=== PATIENT | male | born 1970 | race Caucasian/White ===

== ENCOUNTER 2021-04-06 13:57 | Outpatient (REF) | payer OTHER, SELFPAY ==
[2021-04-06 14:43] LABS: MANUAL DIFF FLAG NO
[2021-04-06 14:54] LABS: Basophils Percent Auto 0.6 % (0-2); Eosinophils Absolute Auto 0.3 X10*3/uL (0.0-0.4); Eosinophils Percent Auto 4.8 % (0-4); Hemoglobin 14.2 g/dl (14.0-18.0); Imm Gran Abs Auto 0.03 X10*3/uL (0.00-0.03); Imm Gran Pct Auto 0.5 % (0.0-0.4); Lymphocytes Absolute Auto 1.6 X10*3/uL (1.2-4.9); Lymphocytes Percent Auto 26.2 % (20-40); Mean Corpuscular HGB Conc 31.6 g/dl (31.0-36.0); Mean Corpuscular Hemoglobin 26.2 pg (27.0-33.0); Mean Platelet Volume 10.4 fL (9.4-12.4); Monocytes Absolute Auto 0.5 X10*3/uL (0.1-1.2); Monocytes Percent Auto 8.4 % (2-11); Neutrophils Absolute Auto 3.7 X10*3/uL (2.0-8.3); Neutrophils Percent Auto 59.5 % (45-73); Platelet Count 183 X10*3/uL (160-400); Red Blood Count 5.42 X10*6/uL (4.60-5.80); Red Cell Distribution Width 15.9 % (11.0-16.0); White Blood Count 6.2 X10*3/uL (4.8-10.8)
[2021-04-06 14:57] LABS: Alanine Aminotransferase 37 U/L (0-40); Alkaline Phosphatase 61 U/L (39-117); Anion Gap 10 (12-20); Aspartate Amino Transferase 25 U/L (5-37); Bilirubin Total 0.7 mg/dL (0.0-1.0); Blood Urea Nitrogen 17 mg/dL (9-16); Calcium 8.9 mg/dL (8.4-10.2); Carbon Dioxide 28 mmol/L (22-29); Chloride 108 mmol/L (96-108); Cholesterol 203 mg/dL; Estimated Glomerular Filt Rate > 60; Glucose Random 90 mg/dL (60-115); HDL Cholesterol 31 mg/dL; LDL Cholesterol Calculated 135 mg/dl; Sodium 141 mmol/L (135-145); Total Protein 6.8 g/dL (6.5-8.0); Triglycerides 187 mg/dL
[2021-04-06 15:06] LABS: Estimated Average Glucose 128 mg/dL; Hemoglobin A1c % 6.1 %
[2021-04-06 15:17] LABS: Free T4 (Free Thyroxine) 0.84 ng/dL (0.71-1.85); Prostate Specific Antigen Scr 2.06 ng/mL (<0.05-4.0); Thyroid Stimulating Hormone 0.89 uIU/mL (0.32-4.0)
[2021-04-06 15:29] LABS: Folate 15.1 ng/mL (> or = 4.0); Vitamin B12 199 pg/mL (200-900)
== END 2021-04-06 13:58 | disposition home or self-care (01) ==
LOC: HO.LAB 13:57
PROVIDERS: PCP Internal Medicine; Visit Provider Internal Medicine
DX: Z12.5 Encounter for screening for malignant neoplasm of prostate (principal); E78.00 Pure hypercholesterolemia, unspecified
CPT/HCPCS: 36415; 80053; 80061; 82607; 82746; 83036; 84153; 84439; 84443; 85025

== ENCOUNTER → 2021-04-29 09:21 | Outpatient (REF) | payer OTHER, SELFPAY | LOC: HO.SL 09:21 | PROVIDERS: PCP Internal Medicine; Visit Provider Internal Medicine | DX: G47.33 Obstructive sleep apnea (adult) (pediatric) (principal) | CPT/HCPCS: 95806 ==

== ENCOUNTER 2021-04-30 10:16 | Outpatient (REF) | payer OTHER, SELFPAY | END 2021-04-30 10:17 | disposition home or self-care (01) | LOC: HO.LAB 10:16 | PROVIDERS: PCP Internal Medicine; Visit Provider Internal Medicine | DX: Z20.822 Contact with and (suspected) exposure to COVID-19 (principal) | CPT/HCPCS: C9803; U0003; U0005 ==

== ENCOUNTER → 2021-05-20 15:14 | Outpatient (BNVA) | payer OTHER, SELFPAY | PROVIDERS: PCP Internal Medicine; Visit Provider Internal Medicine ==

== ENCOUNTER → 2021-07-20 13:11 | Outpatient (REF) | payer OTHER, SELFPAY ==
--- NOTE | 2021-07-20 13:14 | ECG_ITS ---
Hook-up date: 2021-07-20 13:32:00 Duration: 25:39:00 Test Indications: KEV, PALPITATIONS Medications: 19012 QRS complexes * Ventricular ectopics which represent % of total QRS comp. 44 Supraventricular ectopics which represent <1 % of total QRS comp. * Paced QRS complexs which represent % of total QRS comp. VENTRICULAR ECTOPY * Isolated * Bigeminal Cycles * Couplets * Runs * Beats in Runs * Beats LONGEST at * BPM at :: -- * Beats FASTEST at * BPM at :: -- SUPRAVENTRICULAR ECTOPY 12 Isolated 1 Couplets 0 Runs 0 Beats in Runs 0 Beats LONGEST at 0 BPM at :: -- 0 Beats FASTEST at 0 BPM at :: -- HEART RATES 44 MIN at 06:38:10 2021-07-21 65 AVG 101 MAX at 13:34:54 2021-07-20 LONGEST RR 1.5360 secs at 06:38:08 2021-07-21 S-T LEVELS Channel 1 - 128 mm at 13:32:00 2021-07-20 - 128 mm at 13:32:00 2021-07-20 Channel 2 - 128 mm at 13:32:00 2021-07-20 - 128 mm at 13:32:00 2021-07-20 Channel 3 - 128 mm at 03:25:11 -- - 128 mm at 03:25:11 Basic rhythm Normal sinus rhythm No long pause or profound bradycardia Frequent Sinus bradycardia Rare Premature atrial complexes Patient did not report any symptoms in the diary Referred By: Taylor Reyes Overread By: CLARY MCDUFFIE MD
== END ==
LOC: HO.CARD 13:11
PROVIDERS: Visit Provider Internal Medicine
DX: R00.2 Palpitations (principal); G47.33 Obstructive sleep apnea (adult) (pediatric)
CPT/HCPCS: 93226

== ENCOUNTER → 2021-07-29 13:12 | Outpatient (BNVA) | payer OTHER, SELFPAY | PROVIDERS: PCP Internal Medicine; Referring Provider Internal Medicine; Visit Provider Nurse Practitioner Family ==

== ENCOUNTER 2021-08-05 11:27 | Outpatient (REF) | payer OTHER, SELFPAY ==
[2021-08-05 13:53] LABS: COVID-19 Test Negative (Negative); IDNOW Serial# 16C4AD1C
== END 2021-08-05 11:28 | disposition home or self-care (01) ==
LOC: HO.LAB 11:27
PROVIDERS: Visit Provider Internal Medicine
DX: Z20.822 Contact with and (suspected) exposure to COVID-19 (principal)
CPT/HCPCS: 36415; 87635; C9803

== ENCOUNTER → 2021-09-01 13:21 | Outpatient (BNVA) | payer OTHER, SELFPAY | PROVIDERS: PCP Internal Medicine; Visit Provider Internal Medicine ==

== ENCOUNTER 2021-09-23 08:14 | Outpatient (REF) | payer OTHER, SELFPAY ==
[2021-09-23 09:23] LABS: Estimated Average Glucose 126 mg/dL
[2021-09-23 09:45] LABS: Alanine Aminotransferase 34 U/L (0-40); Albumin Level 4.1 g/dL (3.5-5.0); Alkaline Phosphatase 63 U/L (39-117); Anion Gap 11 (12-20); Aspartate Amino Transferase 23 U/L (5-37); Bilirubin Total 0.7 mg/dL (0.0-1.0); Blood Urea Nitrogen 16 mg/dL (9-16); Calcium 9.2 mg/dL (8.4-10.2); Carbon Dioxide 28 mmol/L (22-29); Chloride 104 mmol/L (96-108); Cholesterol 189 mg/dL; Estimated Glomerular Filt Rate > 60; Glucose Random 113 mg/dL (60-115); HDL Cholesterol 25 mg/dL; LDL Cholesterol Calculated 132 mg/dl; Potassium 4.4 mmol/L (3.3-5.1); Sodium 139 mmol/L (135-145); Triglycerides 162 mg/dL
[2021-09-23 10:17] LABS: Folate 12.3 ng/mL (> or = 4.0); Vitamin B12 479 pg/mL (200-900)
== END 2021-09-23 08:15 | disposition home or self-care (01) ==
LOC: HO.LAB 08:14
PROVIDERS: PCP Internal Medicine; Visit Provider Internal Medicine
DX: E78.00 Pure hypercholesterolemia, unspecified (principal); I10 Essential (primary) hypertension
CPT/HCPCS: 36415; 80053; 80061; 82607; 82746; 83036

== ENCOUNTER 2021-11-26 11:28 | Day surgery (SDC) | payer OTHER, SELFPAY ==
[2021-11-18 14:28] VITALS: BMI 48.0
[2021-11-18 15:03] VITALS: BMI 47.7
[2021-11-26 11:30] VITALS: PULSE 59; RESP 19; TEMP 36.1; O2SAT 96
--- NOTE | 2021-11-26 11:37 | MHC.SHP ---
Pre-Procedural Eval Section A Date of Service: 11/26/21 Section B Chief Complaint: Rectal bleeding, GERD Relevant Family History (Specify if Yes): No Relevant Social History: None Present Medications: see Short Stay Collaborative assessment Medical History: Significant History (Patel's palsy Hypercholesterolemia Hypertension Morbid obesity Nocturnal hypoxemia Obesity) History of Previous Operations: Relevant previous surgery/procedure and date(s) (knee surgery) Allergies: Allergies Allergy/AdvReac Type Severity Reaction Status Date / Time No Known Allergies Allergy Verified 11/18/21 15:03 Review of Systems Sugical H&P ROS: Negative: Constitution, Cardiovascular, Respiratory, Neurological, Psychiatric, Hem-Onc, Allergic/Immunologic, Gastrointestinal, Genitourinary, Musculoskeletal, Integumentary, Endocrine and Eyes/Ears/Nose/Throat Exam Surgical H&P Exam: Normal: HEENT, Normal: Heart, Normal: Lungs, Normal: Extremities, Normal: Abdomen, Normal: Skin and Normal: Neurological Plan Diagnosis/Plan: Unchanged I have reviewed the history and physical and performed a pertinent physical examination on my patient. No changes have occurred unless specified.
--- NOTE | 2021-11-26 11:38 | P.BOP_ITS ---
Brief Operative Note Date of Service: 11/26/21 Pre-op diagnosis: rectal bleeding, GERD Post-op diagnosis: same Procedure: see op note Surgeon: Jenny Franklin MD Anesthesia: MAC Was an Recovery Coordinator used for this Procedure?: No Estimated blood loss (mL): 0 Condition: stable Disposition: PACU
--- NOTE | 2021-11-26 11:39 | W.PM.OPN ---
Operative Note Operative Note Date of Service: 11/26/21 Narrative: . Operative Information Procedure Description: EGD, Colonoscopy Indication: rectal bleeding, GERD Anesthesia: MAC Colonoscopy was done first then EGD due to high BMI FLEXIBLE TRANSORAL UPPER GASTROINTESTINAL ENDOSCOPY AND COLONOSCOPY PROCEDURE NOTE UPPER ENDOSCOPY Consent: Indications for the procedure and potential complications of bleeding, perforation, reaction to medications and missed diagnosis were discussed with the patient and informed consent was obtained. Instrument: Olympus GIF H 190 J mid size upper endoscope Monitoring: Vital signs and clinical assessment, continuous EKG monitoring, Pulse oximetry, Carbon Dioxide monitoring and blood pressure monitoring were done throughout the procedure. Procedure: The patient was placed in the left lateral decubitis position and pre-procedure medications were administered and a bite block was placed. The endoscope was inserted into the mouth and advanced under direct vision to the third part of duodenum. A careful inspection was made as the upper endoscope was withdrawn including a retroflexed examination of the proximal stomach; Findings and interventions are described below. Findings: Larynx:normal Esophagus: GE junction at 43 cm, diaphragm hiatus at 43 cm, irregular Z line with edema and erythema at GEJ, bx taken. Esophageal inlet patch noted in proximal esophagus measuring about 10 mm. Stomach: Normal mucosa. Biopsies were obtained. Grade 2 flap valve on retroflexed examination of the cardia. There was small polypoid lesion at cardia 5-6 mm removed with cold forceps Duodenum: mild bulbar duodenitis and normal descending duodenum, Intervention: Biopsies as noted above COLONOSCOPY Instrument: Olympus variable stiffness Adult scope 190L Colonoscopy Monitoring: Vital signs and clinical assessment, continuous EKG monitoring, Pulse oximetry, Carbon Dioxide monitoring and blood pressure monitoring were done throughout the procedure. Colon withdrawal time was 11 minutes. Procedure: The patient was placed in the left lateral decubitis position and pre-procedure medications were administered. After a digital rectal examination of the ano-rectum, the video colonoscope was inserted into the rectum and advanced through the colon to the cecum/TI. The colonoscope was slowly withdrawn in a retrograde panoramic fashion and the colon mucosa was carefully examined including a retroflexed view of the rectum. Findings and interventions are described below. Procedure Difficulty:easy Findings: Terminal Ileum-normal Right sided retroflexion was normal Cecum: 10 mm sessile polyp removed with cold snare Ascending Colon: normal Transverse Colon -normal Descending Colon:normal Sigmoid Colon: 6-8 mm sessile polyp removed w/ cold forceps Rectum: Retroflexion with moderate sized inflammed internal hemorrhoids with red venegas indicative of recent bleeding, grade I Anorectum - normal Colon preparation: [place] Bowel Preparation Scale Right colon; 2 Transverse colon: 3 Left colon; 2 (0 = Unprepared colon segment with mucosa not seen due to solid stool that cannot be cleared. 1 = Portion of mucosa of the colon segment seen, but other areas of the colon segment not well seen due to staining, residual stool and/or opaque liquid. 2 = Minor amount of residual staining, small fragments of stool and/or opaque liquid, but mucosa of colon segment seen well. 3 = Entire mucosa of colon segment seen well with no residual staining, small fragments of stool or opaque liquid) Impression and Post Procedure Diagnosis: Endoscopy Findings: esophageal inlet patch gastric polyp esophagitis duodenitis Colonoscopy Findings: polyps internal hemorrhoids Plan: Await Pathology results Repeat Colonoscopy in 5 years due to adenomatous polyps or earlier if clinically indicated High fiber diet leaflet avoid straining at stool, epsom salts and sitz bath, anusol supps or cream cont with PPi since helping, GERD precautions Above findings were reviewed with the patient and relevant handouts were provided if indicated.
[2021-11-26 12:31] VITALS: BP 107/68; PULSE 57; RESP 16; TEMP 36.8; O2SAT 99
[2021-11-26 12:46] VITALS: BP 117/69; PULSE 52; RESP 15; TEMP 36; O2SAT 95
[2021-11-26 13:01] VITALS: BP 119/67; PULSE 56; RESP 16; O2SAT 96
--- NOTE | 2021-11-26 13:17 | HO.POSTANES ---
Post Anesthesia Evaluation Post Anesthesia Evaluation Vital Signs: Vital Signs Temp Pulse Resp BP Pulse Ox 11/26/21 13:01 56 16 119/67 96 11/26/21 12:46 96.8 F 52 15 117/69 95 11/26/21 12:31 98.3 F 57 16 107/68 99 11/26/21 11:30 97 F 59 19 96 Anesthesia: Monitored Mental Status: Awake Pain Control: Satisfactory Nausea/Vomiting: None Hydration: Adequate Anesthesia-Related Issues: No Anes. Related Issues
== END 2021-11-26 13:47 ==
PROVIDERS: PCP Internal Medicine; Visit Provider Internal Medicine Gastroenterology
PROC: (CPT 45385; principal; 2021-11-26 13:30)
DX: Z12.11 Encounter for screening for malignant neoplasm of colon (principal); D12.0 Benign neoplasm of cecum; D12.5 Benign neoplasm of sigmoid colon; K64.0 First degree hemorrhoids; K59.01 Slow transit constipation; K21.9 Gastro-esophageal reflux disease without esophagitis; K31.7 Polyp of stomach and duodenum; K20.80 Other esophagitis without bleeding; K29.80 Duodenitis without bleeding; K44.9 Diaphragmatic hernia without obstruction or gangrene; Q39.8 Other congenital malformations of esophagus; I10 Essential (primary) hypertension; E78.00 Pure hypercholesterolemia, unspecified; E53.8 Deficiency of other specified B group vitamins; G47.33 Obstructive sleep apnea (adult) (pediatric); R09.02 Hypoxemia; G51.0 Bell's palsy; E66.01 Morbid (severe) obesity due to excess calories; Z68.43 Body mass index [BMI] 50.0-59.9, adult; Z87.891 Personal history of nicotine dependence
CPT/HCPCS: 45385; 45380; 43239; 88305; 88342

== ENCOUNTER → 2021-12-02 11:58 | Outpatient (BNVA) | payer OTHER, SELFPAY | PROVIDERS: PCP Internal Medicine; Referring Provider Internal Medicine; Visit Provider Internal Medicine Gastroenterology | DX: Z11.2 Encounter for screening for other bacterial diseases (principal) ==

== ENCOUNTER 2021-12-02 16:10 | Outpatient (REF) | payer OTHER, SELFPAY ==
[2021-12-05 10:05] LABS: H Pylori Breath Test Negative (Negative)
== END 2021-12-02 16:11 | disposition home or self-care (01) ==
LOC: HO.LNP 16:10
PROVIDERS: Visit Provider Internal Medicine Gastroenterology
DX: R10.13 Epigastric pain (principal); K21.9 Gastro-esophageal reflux disease without esophagitis
CPT/HCPCS: 83013

== ENCOUNTER → 2021-12-09 09:37 | Outpatient (BNVA) | payer OTHER, SELFPAY | PROVIDERS: PCP Internal Medicine; Referring Provider Internal Medicine; Visit Provider Nurse Practitioner Family | DX: K21.9 Gastro-esophageal reflux disease without esophagitis (principal) ==

== ENCOUNTER 2021-12-28 09:27 | Outpatient (REF) | payer OTHER, SELFPAY ==
[2021-12-28 10:28] LABS: MANUAL DIFF FLAG NO
[2021-12-28 10:59] LABS: Basophils Absolute Auto 0.1 X10*3/uL (0.0-0.2); Basophils Percent Auto 0.8 % (0-2); Eosinophils Absolute Auto 0.3 X10*3/uL (0.0-0.4); Hematocrit 45.5 % (42.0-52.0); Hemoglobin 14.5 g/dl (14.0-18.0); Imm Gran Abs Auto 0.03 X10*3/uL (0.00-0.03); Imm Gran Pct Auto 0.5 % (0.0-0.4); Lymphocytes Absolute Auto 1.7 X10*3/uL (1.2-4.9); Lymphocytes Percent Auto 25.6 % (20-40); Mean Corpuscular HGB Conc 31.9 g/dl (31.0-36.0); Mean Corpuscular Hemoglobin 26.4 pg (27.0-33.0); Mean Corpuscular Volume 82.7 fL (80.0-98.0); Mean Platelet Volume 10.6 fL (9.4-12.4); Monocytes Absolute Auto 0.6 X10*3/uL (0.1-1.2); Monocytes Percent Auto 9.2 % (2-11); Neutrophils Absolute Auto 3.9 x10*3/uL (2.0-8.3); Neutrophils Percent Auto 59.9 % (45-73); Platelet Count 228 X10*3/uL (160-400); Red Cell Distribution Width 15.7 % (11.0-16.0); White Blood Count 6.5 X10*3/uL (4.8-10.8)
[2021-12-28 11:17] LABS: Estimated Average Glucose 123 mg/dL; Hemoglobin A1c % 5.9 %
[2021-12-28 11:59] LABS: Thyroid Stimulating Hormone 1.23 uIU/mL (0.32-4.0)
[2021-12-28 12:02] LABS: Folate 16.2 ng/mL (> or = 4.0); Vitamin B12 444 pg/mL (200-900)
[2021-12-28 12:05] LABS: Alanine Aminotransferase 27 U/L (0-40); Albumin Level 3.9 g/dL (3.5-5.0); Alkaline Phosphatase 55 U/L (39-117); Anion Gap 10 (12-20); Aspartate Amino Transferase 21 U/L (5-37); Bilirubin Total 0.8 mg/dL (0.0-1.0); Blood Urea Nitrogen 16 mg/dL (9-16); Calcium 9.3 mg/dL (8.4-10.2); Carbon Dioxide 28 mmol/L (22-29); Chloride 106 mmol/L (96-108); Cholesterol 222 mg/dL; Estimated Glomerular Filt Rate > 60; Glucose Random 110 mg/dL (60-115); HDL Cholesterol 24 mg/dL; LDL Cholesterol Calculated 168 mg/dl; Potassium 5.2 mmol/L (3.3-5.1); Sodium 139 mmol/L (135-145); Total Protein 6.7 g/dL (6.5-8.0); Triglycerides 151 mg/dL
[2022-01-04 13:56] LABS: Prot Elec - Albumin 3.9 g/dL (3.8-4.8); Prot Elec - Alpha1 0.3 g/dL (0.2-0.3); Prot Elec - Alpha2 0.6 g/dL (0.5-0.9); Prot Elec - Beta 1 0.4 g/dL (0.4-0.6); Prot Elec - Beta 2 0.4 g/dL (0.2-0.5); Prot Elec - Total Protein 6.6 g/dL (6.1-8.1)
== END 2021-12-28 09:28 | disposition home or self-care (01) ==
LOC: HO.LAB 09:27
PROVIDERS: PCP Internal Medicine; Visit Provider Internal Medicine
DX: R73.02 Impaired glucose tolerance (oral) (principal); E78.00 Pure hypercholesterolemia, unspecified; R79.89 Other specified abnormal findings of blood chemistry; K21.9 Gastro-esophageal reflux disease without esophagitis; I10 Essential (primary) hypertension
CPT/HCPCS: 36415; 80053; 80061; 82607; 82746; 83036; 84165; 84439; 84443; 85025

== ENCOUNTER 2022-05-13 09:54 | Outpatient (REF) | payer OTHER, SELFPAY ==
[2022-05-13 11:24] LABS: Estimated Average Glucose 120 mg/dL; Hemoglobin A1c % 5.8 %
[2022-05-13 11:42] LABS: Alanine Aminotransferase 15 U/L (0-40); Albumin Level 4.3 g/dL (3.5-5.0); Alkaline Phosphatase 63 U/L (39-117); Anion Gap 13 (12-20); Aspartate Amino Transferase 17 U/L (5-37); Bilirubin Total 0.3 mg/dL (0.0-1.0); Blood Urea Nitrogen 16 mg/dL (9-16); Calcium 8.9 mg/dL (8.4-10.2); Carbon Dioxide 28 mmol/L (22-29); Chloride 105 mmol/L (96-108); Cholesterol 229 mg/dL; Estimated Glomerular Filt Rate > 60; Glucose Random 92 mg/dL (60-115); HDL Cholesterol 35 mg/dL; LDL Cholesterol Calculated 165 mg/dl; Potassium 4.9 mmol/L (3.3-5.1); Sodium 141 mmol/L (135-145); Total Protein 7.2 g/dL (6.5-8.0); Triglycerides 148 mg/dL
== END 2022-05-13 09:55 | disposition home or self-care (01) ==
LOC: HO.LAB 09:54
PROVIDERS: PCP Internal Medicine; Visit Provider Internal Medicine
DX: R73.02 Impaired glucose tolerance (oral) (principal); E78.00 Pure hypercholesterolemia, unspecified
CPT/HCPCS: 36415; 80053; 80061; 83036

== ENCOUNTER 2022-06-10 08:26 | Outpatient (REF) | payer OTHER, SELFPAY | END 2022-06-10 08:27 | disposition home or self-care (01) | LOC: HO.LAB 08:26 | PROVIDERS: PCP Internal Medicine; Visit Provider Internal Medicine | DX: Z13.89 Encounter for screening for other disorder (principal) ==

== ENCOUNTER 2022-08-11 08:40 | Outpatient (REF) | payer OTHER, SELFPAY ==
[2022-08-11 09:16] LABS: Estimated Average Glucose 117 mg/dL; Hemoglobin A1c % 5.7 %
[2022-08-11 09:28] LABS: Alanine Aminotransferase 19 U/L (0-40); Albumin Level 4.1 g/dL (3.5-5.0); Alkaline Phosphatase 63 U/L (39-117); Anion Gap 9 (12-20); Aspartate Amino Transferase 16 U/L (5-37); Bilirubin Total 0.5 mg/dL (0.0-1.0); Blood Urea Nitrogen 16 mg/dL (9-16); Calcium 9.1 mg/dL (8.4-10.2); Carbon Dioxide 29 mmol/L (22-29); Chloride 105 mmol/L (96-108); Cholesterol 231 mg/dL; Estimated Glomerular Filt Rate > 60; Glucose Random 110 mg/dL (60-115); HDL Cholesterol 28 mg/dL; LDL Cholesterol Calculated 165 mg/dl; Potassium 4.7 mmol/L (3.3-5.1); Sodium 138 mmol/L (135-145); Total Protein 6.7 g/dL (6.5-8.0); Triglycerides 190 mg/dL
== END 2022-08-11 08:41 | disposition home or self-care (01) ==
LOC: HO.LAB 08:40
PROVIDERS: PCP Internal Medicine; Visit Provider Internal Medicine
DX: E78.00 Pure hypercholesterolemia, unspecified (principal)
CPT/HCPCS: 36415; 80053; 80061; 83036

== ENCOUNTER → 2022-09-08 13:26 | Outpatient (BNVA) | payer OTHER, SELFPAY | PROVIDERS: PCP Internal Medicine; Visit Provider Internal Medicine | DX: Z13.89 Encounter for screening for other disorder (principal) ==

== ENCOUNTER 2022-10-26 10:23 | Outpatient (REF) | payer OTHER, SELFPAY ==
[2022-10-26 10:38] LABS: MANUAL DIFF FLAG NO
[2022-10-26 11:06] LABS: Basophils Percent Auto 0.7 % (0-2); Eosinophils Absolute Auto 0.3 X10*3/uL (0.0-0.4); Eosinophils Percent Auto 4.7 % (0-4); Hematocrit 46.3 % (42.0-52.0); Hemoglobin 15.1 g/dl (14.0-18.0); Imm Gran Abs Auto 0.03 X10*3/uL (0.00-0.03); Imm Gran Pct Auto 0.5 % (0.0-0.4); Lymphocytes Absolute Auto 1.6 X10*3/uL (1.2-4.9); Lymphocytes Percent Auto 26.3 % (20-40); Mean Corpuscular HGB Conc 32.6 g/dl (31.0-36.0); Mean Corpuscular Hemoglobin 27.7 pg (27.0-33.0); Mean Corpuscular Volume 84.8 fL (80.0-98.0); Mean Platelet Volume 9.7 fL (9.4-12.4); Monocytes Absolute Auto 0.5 X10*3/uL (0.1-1.2); Monocytes Percent Auto 8.8 % (2-11); Neutrophils Absolute Auto 3.6 x10*3/uL (2.0-8.3); Platelet Count 161 X10*3/uL (160-400); Red Blood Count 5.46 X10*6/uL (4.60-5.80); Red Cell Distribution Width 14.4 % (11.0-16.0); White Blood Count 6.1 X10*3/uL (4.8-10.8)
[2022-10-26 11:25] LABS: Estimated Average Glucose 117 mg/dL; Hemoglobin A1C 149.7471 umol/L; Hemoglobin A1c % 5.7 %
[2022-10-26 12:00] LABS: Alanine Aminotransferase 16 U/L (0-40); Albumin Level 3.9 g/dL (3.5-5.0); Alkaline Phosphatase 62 U/L (39-117); Anion Gap 12 (12-20); Aspartate Amino Transferase 17 U/L (5-37); Bilirubin Total 0.6 mg/dL (0.0-1.0); Blood Urea Nitrogen 19 mg/dL (9-16); Calcium 8.7 mg/dL (8.4-10.2); Carbon Dioxide 27 mmol/L (22-29); Chloride 108 mmol/L (96-108); Cholesterol 237 mg/dL; Estimated Glomerular Filt Rate > 60; Free T4 (Free Thyroxine) 0.74 ng/dL (0.71-1.85); Glucose Random 101 mg/dL (60-115); HDL Cholesterol 30 mg/dL; LDL Cholesterol Calculated 175 mg/dl; Potassium 4.8 mmol/L (3.3-5.1); Prostate Specific Antigen Scr 2.48 ng/mL (<0.05-4.0); Sodium 142 mmol/L (135-145); Thyroid Stimulating Hormone 1.32 uIU/mL (0.32-4.0); Total Protein 6.4 g/dL (6.5-8.0); Triglycerides 163 mg/dL
== END 2022-10-26 10:24 | disposition home or self-care (01) ==
LOC: HO.LAB 10:23
PROVIDERS: PCP Internal Medicine; Visit Provider Internal Medicine
DX: E78.00 Pure hypercholesterolemia, unspecified (principal); R73.02 Impaired glucose tolerance (oral); Z12.5 Encounter for screening for malignant neoplasm of prostate
CPT/HCPCS: 36415; 80053; 80061; 83036; 84153; 84439; 84443; 85025

== ENCOUNTER → 2022-11-09 07:46 | Outpatient (REF) | payer OTHER, SELFPAY ==
--- NOTE | 2022-11-09 07:48 | HM_ITS ---
* Total monitoring time about 3 days. * Underlying rhythm is sinus. Average ventricular rate 62/Min. Range 48 to 96/Min. * Rare PACs with minimal burden. * No significant pauses or AV blocks. * No patient markers or events in diary. MTDD
== END ==
LOC: HO.CARD 07:46
PROVIDERS: PCP Internal Medicine; Visit Provider Internal Medicine
DX: R00.2 Palpitations (principal)
CPT/HCPCS: 93242

== ENCOUNTER → 2023-02-03 10:59 | Outpatient (BNVA) | payer OTHER, SELFPAY | PROVIDERS: PCP Internal Medicine; Referring Provider Internal Medicine; Visit Provider Nurse Practitioner Family ==

== ENCOUNTER 2023-03-10 13:36 | Outpatient (AMB) | payer OTHER, SELFPAY ==
[2023-03-10 13:39] VITALS: BP 128/70; PULSE 64; O2SAT 96; BMI 46.4
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
== END 2023-03-10 13:54 | disposition home or self-care (01) ==
PROVIDERS: PCP Internal Medicine; Visit Provider Internal Medicine
DX: E66.01 Morbid (severe) obesity due to excess calories (principal); G47.33 Obstructive sleep apnea (adult) (pediatric); G47.34 Idiopathic sleep related nonobstructive alveolar hypoventilation
CPT/HCPCS: 99213

== ENCOUNTER → 2023-03-10 13:36 | Outpatient (BNVA) | payer OTHER, SELFPAY | PROVIDERS: Visit Provider Internal Medicine | DX: K59.00 Constipation, unspecified (principal) ==

== ENCOUNTER 2023-05-02 08:19 | Outpatient (REF) | payer OTHER, SELFPAY ==
[2023-05-02 09:33] LABS: Estimated Average Glucose 114 mg/dL; Hemoglobin A1c % 5.6 % (<6.0)
[2023-05-02 10:57] LABS: Alanine Aminotransferase 21 U/L (0-40); Albumin Level 4.3 g/dL (3.5-5.0); Alkaline Phosphatase 63 U/L (39-117); Anion Gap 16 (12-20); Aspartate Amino Transferase 18 U/L (5-37); Bilirubin Total 0.4 mg/dL (0.0-1.0); Blood Urea Nitrogen 19 mg/dL (9-16); Calcium 9.3 mg/dL (8.4-10.2); Carbon Dioxide 23 mmol/L (22-29); Chloride 106 mmol/L (96-108); Cholesterol 246 mg/dL (<200); Estimated Glomerular Filt Rate > 60; Glucose Random 107 mg/dL (60-115); HDL Cholesterol 38 mg/dL (>40); LDL Cholesterol Calculated 176 mg/dL (<100); Potassium 4.6 mmol/L (3.3-5.1); Sodium 140 mmol/L (135-145); Total Protein 7.3 g/dL (6.5-8.0); Triglycerides 163 mg/dL (<150)
== END 2023-05-02 08:20 | disposition home or self-care (01) ==
LOC: HO.LAB 08:19
PROVIDERS: PCP Internal Medicine; Visit Provider Internal Medicine
DX: E78.00 Pure hypercholesterolemia, unspecified (principal)
CPT/HCPCS: 36415; 80053; 80061; 83036

== ENCOUNTER 2023-05-12 13:44 | Outpatient (AMB) | payer OTHER, SELFPAY ==
[2023-05-12 13:48] VITALS: BP 138/72; PULSE 69; O2SAT 93; BMI 46.4
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
== END 2023-05-12 14:11 | disposition home or self-care (01) ==
PROVIDERS: PCP Internal Medicine; Visit Provider Internal Medicine
DX: E78.00 Pure hypercholesterolemia, unspecified (principal); I10 Essential (primary) hypertension; Z68.42 Body mass index [BMI] 45.0-49.9, adult; E66.9 Obesity, unspecified; K21.9 Gastro-esophageal reflux disease without esophagitis; G47.33 Obstructive sleep apnea (adult) (pediatric); R73.02 Impaired glucose tolerance (oral); I87.2 Venous insufficiency (chronic) (peripheral)
CPT/HCPCS: 99214

== ENCOUNTER 2023-09-14 10:47 | Outpatient (AMB) | payer OTHER, SELFPAY ==
[2023-09-14 10:54] VITALS: BP 120/74; PULSE 58; O2SAT 98; BMI 46.6
--- NOTE | 2023-09-14 10:54 | A.OFFVIS_ITS ---
Intake Vital Signs 09/14/23 10:54 Height 5 ft 8 in Weight 306 lb 7.08 oz BMI 46.6 BP 120/74 Blood Pressure Location Lt brachial Position Sitting Pulse 58 Pulse Oximetry (%) 98 Oxygen Delivery Method Room Air Intake Visit Reasons: xiomara Intake Note: pt is here for follow up and using the cpap no issues, but does get nasal congestion, very dry at times Shingle Carrier Required: No Allergies No Known Allergies Allergy (Verified 09/14/23 11:16) Medication List - Last Reconciled 09/14/23 by David Rider MD blood pressure monitor (Blood Pressure Kit) As directed XL cuff carbamazepine 200 mg PO BID clotrimazole 1% 1 appl topical BID 4 weeks [CPAP As directed] cyanocobalamin (vitamin B-12) 1,000 mcg PO DAILY docusate sodium 100 mg PO BEDTIME hydrocortisone 2.5% (Anusol-HC) 1 appl [place] BID-QID PRN lisinopril 5 mg PO DAILY sildenafil 50 mg PO DAILY PRN simvastatin 10 mg PO BEDTIME Do you need a note to return to daycare/school/sports/work: No HPI xiomara HPI Details 52 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 HE IS USING CPAP VERY REGULARLY WITH, A LARGE SIZE FULLFACE MASK. HE HAS BEEN VERY COMPLIANT, AND GETS GOOD SLEEP FOR AT LEAST 6 HOURS EVERY NIGHT. 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 HE IS ALSO LOOKING FOR A FULLFACE MASK OF A DIFFERENT MAKE WHICH DOES NOT COVER HIS NASAL BRIDGE. WEIGHT LOPEZ HE HAS NOT MADE ANY PROGRESS AND STILL REMAINS MORBIDLY OBESE. FORMERLY [facility], [facility]–1983 Medical History Nocturnal hypoxemia Morbid obesity Colon cancer screening Patel's palsy Hypertension Obesity Hypercholesterolemia Surgical History Meniscal injury Family History Brother Substance abuse Paternal Grandmother Cancer Father HTN (hypertension) Mother Borderline diabetes Seizures High cholesterol Dementia Social History Housing: House Are you a primary care manager to a significant other at home: No Do you presently have visiting nurse or other home services: No Alcohol intake: current Alcohol intake frequency: holidays/special occasions only Patient Tobacco Use Status: Former Tobacco user Quit Date: 1998 Tobacco use type: Cigarette Years Smoked: quit 1998 e-Cigarette/Vaping Use: Never Used Second Hand Smoke Exposure: No service: No Current occupational status: employed Cognitive needs: No Hearing needs: No Vision needs: No Review of Systems Const All systems reviewed & are unremarkable except as noted in HPI and below Eyes Reports no additional complaints ENT Reports no additional complaints Card Denies chest pain, Denies irregular heart rhythm and Denies leg edema Resp Reports no additional complaints GI Reports no additional complaints Reports no additional complaints Musc Reports no additional complaints Skin/Breast Reports system reviewed and no additional complaints, except as documented Physical Exam Vital Signs: Last Vital Signs Pulse 58 09/14/23 10:54 BP 120/74 09/14/23 10:54 Pulse Ox 98 09/14/23 10:54 Oxygen Delivery Method Room Air 09/14/23 10:54 BMI result Body Mass Index 46.6 Const General: healthy appearing (Except for being grossly overweight), comfortable, no acute distress, alert and awake Orientation/consciousness: patient oriented x3 HEENT Head: Yes normal to inspection General nose exam: No nasal polyps present and No nasal discharge present Face and sinus: Yes sinuses nontender Mouth: oropharynx normal Throat: Yes posterior oropharynx normal Eyes General: appearance normal, both eyes and all related structures Neck Neck: Yes normal visual inspection, Yes no lymphadenopathy, Yes trachea midline and Yes no JVD Thyroid: Thyroid normal Chest Chest palpation & inspection: normal inspection of the chest, normal palpation of entire chest wall and no tenderness Resp Effort & Inspection: normal respiratory effort Auscultation: clear to auscultation bilaterally Percussion: percussion normal Cardio Palpation: normal PMI Rate: regular rate Rhythm: regular rhythm Heart sounds: no gallops and no murmurs Peripheral pulses: Peripheral pulses 2+ throughout GI Palpation (GI): Soft to palpation, nontender, No hepatosplenomegaly present and no masses Auscultation: normal bowel sounds Back/Spine/Pelvis Thoracic/Lumbar Spine: thoracic and lumbar spine normal to inspection Skin General skin exam: no rashes or lesions noted Neuro General: patient oriented x3 and no focal motor deficits Cranial nerves: Yes CN's II-XII intact bilaterally Extrem General: Yes normal to inspection, Yes no clubbing, cyanosis or edema and Yes no calf tenderness Psych Speech and movement: Normal speech and movement present Results Reviewed Results Reviewed: HIS COMPLIANCE REPORT IS REVIEWED HE HAS USED 29/30 NIGHTS,. 97% AVERAGE USE IT PER NIGHT 6 HOURS 14 MINUTES. THE NEED YUMIKO PRESSURE 9 CM 95TH PERCENTILE 13.2 CM. THERE IS NO SIGNIFICANT AIR LEAK. RESIDUAL AHI ONLY 0.5 Assessment & Plan Assessment & Plan (1) Morbid obesity: Comment: DISCUSSED ABOUT THE WEIGHT ISSUE. HE HAS BEEN WATCHING HIS DIET BUT HAS NOT BEEN ABLE TO WALK DURING WINTER . HE CANNOT JOIN WEIGHT MANAGEMENT PROGRAM. Code(s): E66.01 - Morbid (severe) obesity due to excess calories Plan: HAD A GOOD TALK ABOUT DIET AND EXERCISE , MUST WALK UP TO 2 MILES DAILY . ULTIMATE GOAL FOR HIS WEIGHT IS 250 LB. (2) Obstructive sleep apnea: Comment: HE HAS RATHER SEVERE OBSTRUCTIVE SLEEP APNEA WITH NOCTURNAL HYPOXEMIA. IT IS BEING TREATED SUCCESSFULLY WITH THE CPAP, AND HE IS VERY COMPLIANT. HIS SLEEP IS GOOD . HE IS DEFINITELY BENEFITTING FROM THE USE OF CPAP. Code(s): G47.33 - Obstructive sleep apnea (adult) (pediatric) Plan: HE IS ENCOURAGED TO CONTINUE USING CPAP EVERY NIGHT, FOR AT LEAST 6-7 HO URS/NIGHT IN NEW FACE MASK F 20 GIVEN FROM THE OFFICE TO TRY, IF IT WORKS BETTER FOR HIM WE WILL BE GLAD. TO ORDER IT FAR HIS 2ND CPAP UNIT, , TO KEEP IN THE OFFICE HE MAY HAVE TO BUY ON HIS OWN. I ADVISED HIM TO DISCUSS WITH DME SUPPLIER. Coding Level of Care Code Est Pt Level 3 (00559) Diagnoses Morbid obesity E66.01 Obstructive sleep apnea G47.33
== END 2023-09-14 11:20 | disposition home or self-care (01) ==
PROVIDERS: PCP Internal Medicine; Visit Provider Internal Medicine
DX: E66.01 Morbid (severe) obesity due to excess calories (principal); G47.33 Obstructive sleep apnea (adult) (pediatric)
CPT/HCPCS: 99213

== ENCOUNTER → 2023-09-14 10:47 | Outpatient (BNVA) | payer OTHER, SELFPAY | PROVIDERS: PCP Internal Medicine; Visit Provider Internal Medicine ==

== ENCOUNTER 2023-11-21 08:24 | Outpatient (REF) | payer OTHER, SELFPAY ==
[2023-11-21 09:29] LABS: Estimated Average Glucose 123 mg/dL; Hemoglobin A1c % 5.9 % (<6.0)
[2023-11-21 09:48] LABS: Alanine Aminotransferase 25 U/L (0-40); Albumin Level 4.2 g/dL (3.5-5.0); Alkaline Phosphatase 69 U/L (39-117); Anion Gap 11 (12-20); Aspartate Amino Transferase 18 U/L (5-37); Bilirubin Total 0.3 mg/dL (0.0-1.0); Blood Urea Nitrogen 17 mg/dL (9-16); Calcium 9.3 mg/dL (8.4-10.2); Carbon Dioxide 26 mmol/L (22-29); Chloride 109 mmol/L (96-108); Cholesterol 205 mg/dL (<200); Estimated Glomerular Filt Rate > 60; Glucose Random 106 mg/dL (60-115); HDL Cholesterol 35 mg/dL (>40); LDL Cholesterol Calculated 141 mg/dL (<100); Potassium 5.3 mmol/L (3.3-5.1); Sodium 141 mmol/L (135-145); Total Protein 7.2 g/dL (6.5-8.0); Triglycerides 148 mg/dL (<150)
== END 2023-11-21 08:25 | disposition home or self-care (01) ==
LOC: HO.LAB 08:24
PROVIDERS: PCP Internal Medicine; Visit Provider Internal Medicine
DX: E78.00 Pure hypercholesterolemia, unspecified (principal)
CPT/HCPCS: 36415; 80053; 80061; 83036

== ENCOUNTER 2023-12-07 11:20 | Outpatient (AMB) | payer OTHER, SELFPAY ==
[2023-12-07 11:21] VITALS: BP 138/80; PULSE 59; O2SAT 97; BMI 47.1
--- NOTE | 2023-12-07 11:21 | A.OFFPC_ITS ---
Vital Signs 12/07/23 11:21 Height 5 ft 8 in Weight 310 lb BMI 47.1 BP 138/80 Blood Pressure Location Lt brachial Position Sitting Pulse 59 Pulse Source Pulse Oximeter Pulse Oximetry (%) 97 Oxygen Delivery Method Room Air Intake Visit Reasons: Annual Exam Allergies No Known Allergies Allergy (Verified 12/07/23 11:21) Medication List - Last Reconciled 12/07/23 by Taylor Reyes MD blood pressure monitor (Blood Pressure Kit) As directed XL cuff carbamazepine 200 mg PO BID clotrimazole 1% 1 appl topical BID 4 weeks [CPAP As directed] cyanocobalamin (vitamin B-12) 1,000 mcg PO DAILY docusate sodium 100 mg PO BEDTIME hydrocortisone 2.5% (Anusol-HC) 1 appl [place] BID-QID PRN lisinopril 5 mg PO DAILY sildenafil 50 mg PO DAILY PRN simvastatin 10 mg PO BEDTIME Tobacco use date assessed: 12/07/23 Dental Screening Dental Screen Date: 12/07/23 Did you have a dental visit in the last 12 months?: Yes Did you have a dental problem in the last 6 months where you did not have access to dental care?: No Was dental information given to patient?: Patient has dentist HPI Annual Exam HPI Details 52-year-old morbidly obese male with hyp ercholesterolemia hypertension GERD obstructive sleep apnea impaired glucose tolerance last seen in May 2023 patient is here for physical exam. Colonoscopy is up-to-date November 2021 with tubular adenoma. Review of the notes follows up with Pulmonary September 2023 continue to use the obstructive sleep apnea CPAP and compliant. [facility] Medical History Nocturnal hypoxemia Morbid obesity Colon cancer screening Patel's palsy Hypertension Obesity Hypercholesterolemia Surgical History Meniscal injury Family History Brother Substance abuse Paternal Grandmother Cancer Father HTN (hypertension) Mother Borderline diabetes Seizures High cholesterol Dementia Social History (Updated 12/07/23 @ 11:51 by Taylor Reyes MD) Housing: House Are you a primary care professional to a significant other at home: No Do you presently have visiting nurse or other home services: No Alcohol intake: current Alcohol intake frequency: holidays/special occasions only Comment: once Q 4 month2-3 drinks Patient Tobacco Use Status: Former Tobacco user Quit Date: 1998 Tobacco use type: Cigarette Years Smoked: quit 1998 e-Cigarette/Vaping Use: Never Used Second Hand Smoke Exposure: No service: No Current occupational status: employed Cognitive needs: No Hearing needs: No Vision needs: No Questionnaire PHQ-9 Over the last 2 weeks, how often have you been bothered by any of the following problems? 1. Little interest or pleasure in doing things: not at all 2. Feeling down, depressed, or hopeless: not at all 3. Trouble falling or staying asleep, or sleeping too much: not at all 4. Feeling tired or having little energy: not at all 5. Poor appetite or overeating: not at all 6. Feeling bad about yourself - or that you are a failure or have let yourself or your family down: not at all 7. Trouble concentrating on things, such as reading the newspaper or watching television: not at all 8. Moving or speaking so slowly that other people could have noticed. Or the opposite - being so fidgety or restless that you have been moving around a lot more than usual: not at all 9. Thoughts that you would be better off or of hurting yourself in some w ay: not at all Total score: 0 Depression Screening Interpretation: Negative Depression Screening Done: Yes Source: Developed by Drs. Silvino Julio, Enid Parra, Aldo Haney and colleagues, with an educational brock from [employer]. Thrive Questionnaire Date Thrive assessed: 12/07/23 I am a: Patient What is your living situation today?: I have a steady place to live Within the past 12 months, did the food you bought not last and you didn't have the money to get more?: Never true Within the past 12 months, did you worry whether your food would run out before you got money to buy more?: Never true Do you have trouble paying for medicines?: No Do you have trouble getting transportation to medical appointments?: No Do you have trouble paying your heating and electricity bill?: No Do you have trouble taking care of your child, family member or friend?: No Do you have trouble with day-to-day activities such as bathing, preparing meals, shopping, managing finances, etc.?: No Are you currently unemployed and looking for a job?: No Are you interested in more education?: No Currently or been in a relationship where the following occur: no concerns reported THRIVE Score: 0 AUDIT C Alcohol Use Questionnaire (AUDIT-C) 1. How often do you have a drink containing alcohol?: Monthly or less 2. How many drinks containing alcohol do you have on a typical day when you are drinking?: 1 or 2 3. How often do you have six or more drinks on one occasion?: Never Total Score: 1 STEFANY-7 AMB Questionnaire STEFANY-7 Date STEFANY - 7 assessed: 12/07/23 Feeling nervous, anxious, or on edge: 0 = Not at all Not being able to stop or control worryin = Not at all Worrying too much about different things: 0 = Not at all Trouble relaxin = Not at all Being so restless that it is hard to sit still: 0 = Not at all Becoming easily annoyed or irritable: 0 = Not at all Feeling afraid as if something awful might happen: 0 = Not at all Total STEFANY-7 score (0-4 normal; 5-9 mild; 10-14 moderate; 15-21 severe): 0 Source: Developed by Drs. Silvino Julio, Enid Parra, Aldo Haney and colleagues, with an educational brock from [employer]. Review of Systems Const Denies poor appetite and Denies weakness Eyes Denies no additional complaints ENT Reports Normal hearing present, Denies dizziness, Denies nasal congestion, Denies tinnitus and Denies sore throat Card Denies chest pain, Denies syncope, Denies rapid heart rate and Denies dyspnea Resp Denies cough and Denies dyspnea GI Denies change in stool character, Reports constipation, Denies diarrhea, Denies nausea and Denies vomiting Denies dysuria and Denies urinary frequency Neuro Reports Normal hearing present, Denies confusion, Denies dizziness, Denies syncope and Denies weakness Psych Denies confusion Physical exam (Primary Care) Vital Signs: Last Vital Signs Pulse 59 12/07/23 11:21 BP 138/80 12/07/23 11:21 Pulse Ox 97 12/07/23 11:21 Oxygen Delivery Method Room Air 12/07/23 11:21 BMI result Body Mass Index 47.1 Tobacco/Smoking Status: Tobacco use Status Tobacco use date assessed 12/07/23 12/07/23 11:22 Patient Tobacco Use Status Former Tobacco user 12/07/23 11:22 Tobacco use type Cigarette 12/07/23 11:22 e-Cigarette/Vaping Use Never Used 12/07/23 11:22 PHQ-9: PHQ-9 Score PHQ-9: Total score 0 12/07/23 11:28 Depression Screening Interpretation: Negative Thrive Assessment: Date of Thrive Assessment Date Thrive assessed 12/07/23 12/07/23 11:22 Currently or been in a relationship where the following occur: no concerns reported Const General: No confusion Orientation/consciousness: No confusion HENMT Head: Yes normocephalic Ears: external ears normal and TM's normal bilaterally Face and sinus: Yes normal facial exam Mouth: moist mucous membranes Throat: Yes tonsils normal Eyes Conjunctivae: conjunctivae normal Pupils: Equal, round and reactive pupils present and Pupil accommodation reflex normal Direct Ophthalmoscopy: normal light reflex Neck Neck: No lymphadenopathy Thyroid: Thyroid normal Chest Chest palpation & inspection: normal inspection of the chest Resp Effort & Inspection: normal respiratory effort and no audible wheezes Auscultation: clear to auscultation bilaterally, no crackles, no wheezes and lung sounds not diminished Cardio Rate: regular rate Rhythm: regular rhythm Peripheral pulses: radial pulses present and dorsalis pedis present GI Other: guaic negative prostate N Palpation (GI): no masses Auscultation: normal bowel sounds and normoactive bowel sounds Male General Exam: Yes normal external exam Skin General skin exam: no rashes or lesions noted Rashes: no rashes Neuro General: No confusion Cranial nerves: Yes Equal, round and reactive pupils present and Yes Normal hearing present Cognition (Neuro): normal cognition Gait exam (Neuro): Normal gait present Motor exam (neuro): 5/5 motor strength present throughout Deep tendon reflexes (DTR's): Right brachioradialis reflex intensity grade: 2+, Left brachioradialis reflex intensity grade: 2+, Right patellar reflex intensity grade: 2+ and Left patellar reflex intensity grade: 2+ Extrem General: No edema Assessment and Plan Assessment & Plan (1) Annual physical exam: Code(s): Z00.00 - Encounter for general adult medical examination without abnormal findings (2) Morbid obesity: Comment: DISCUSSED ABOUT THE WEIGHT ISSUE. HE HAS BEEN WATCHING HIS DIET BUT HAS NOT BEEN ABLE TO WALK DURING WINTER . HE CANNOT JOIN WEIGHT MANAGEMENT PROGRAM. Code(s): E66.01 - Morbid (severe) obesity due to excess calories Plan: Diet and exercise (3) Obstructive sleep apnea: Comment: HE HAS RATHER SEVERE OBSTRUCTIVE SLEEP APNEA WITH NOCTURNAL HYPOXEMIA. IT IS BEING TREATED SUCCESSFULLY WITH THE CPAP, AND HE IS VERY COMPLIANT. HIS SLEEP IS GOOD . HE IS DEFINITELY BENEFITTING FROM THE USE OF CPAP. Code(s): G47.33 - Obstructive sleep apnea (adult) (pediatric) Plan: Continue to use the CPAP more than 4 hours a night and benefits from this. (4) Hypertension: Code(s): I10 - Essential (primary) hypertension Plan: Continue with blood pressure medication. Decrease salt intake and exercise patient is on lisinopril 5 mg once a day (5) Hypercholesterolemia: Code(s): E78.00 - Pure hypercholesterolemia, unspecified Plan: Avoid fried foods, chicken skin, eggs, butter margarine, pastries and meat. Be it pork or beef they have a lot of cholesterol LDL goal of less than 130 and triglyceride of less than 150. Presently on simvastatin 10 mg once a day (6) Impaired glucose tolerance: Code(s): R73.02 - Impaired glucose tolerance (oral) Plan: Decrease the amount of carbohydrate intake, pasta, bread, rice and potatoes are all sugar and that is aside from all the sweet stuff, remember that fruits are good but they are Sweet also. (7) Trigeminal neuralgia of right side of face: Code(s): G50.0 - Trigeminal neuralgia Orders: Orders Comprehensive Met. Panel 3 Months E78.00 - Pure hypercholesterolemia, unspecified Prostate Specific Antigen Scr 3 Months Z00.00 - Encounter for general adult medical examination without abnormal findings Thyroid Stimulating Hormone 3 Months Z00.00 - Encounter for general adult medical examination without abnormal findings Lipid Panel 3 Months E78.00 - Pure hypercholesterolemia, unspecified Hemoglobin A1c 3 Months R73.02 - Impaired glucose tolerance (oral) Free T4 (Free Thyroxine) 3 Months Z00.00 - Encounter for general adult medical examination without abnormal findings Medications: Changed From simvastatin 10 mg PO BEDTIME 30 tabs 3RF E78.00 - Pure hypercholesterolemia, unspecified To simvastatin 20 mg PO BEDTIME 30 tabs 3RF E78.00 - Pure hypercholesterolemia, unspecified Coding Level of Care Code Est Pt Level 4 (50215) Diagnoses Annual physical exam Z00.00 Morbid obesity E66.01 Obstructive sleep apnea G47.33 Hypertension I10 Hypercholesterolemia E78.00 Impaired glucose tolerance R73.02 Trigeminal neuralgia of right side of face G50.0
== END 2023-12-07 12:08 | disposition home or self-care (01) ==
PROVIDERS: PCP Internal Medicine; Visit Provider Internal Medicine
DX: Z00.00 Encounter for general adult medical examination without abnormal findings (principal); E66.01 Morbid (severe) obesity due to excess calories; Z68.42 Body mass index [BMI] 45.0-49.9, adult; G47.33 Obstructive sleep apnea (adult) (pediatric); I10 Essential (primary) hypertension; E78.00 Pure hypercholesterolemia, unspecified; R73.02 Impaired glucose tolerance (oral); G50.0 Trigeminal neuralgia
CPT/HCPCS: 99213; 99396

== ENCOUNTER 2024-01-18 11:26 | Outpatient (AMB) | payer OTHER, SELFPAY ==
[2024-01-18 11:29] VITALS: BP 150/80; PULSE 61; O2SAT 95; BMI 47.6
--- NOTE | 2024-01-18 11:29 | MHC.OFFVIS ---
Vital Signs 01/18/24 11:29 Height 5 ft 8 in Weight 313 lb 0.902 oz BMI 47.6 BP 150/80 H Blood Pressure Location Lt brachial Position Sitting Pulse 61 Pulse Source Pulse Oximeter Pulse Oximetry (%) 95 Oxygen Delivery Method Room Air Intake Visit Reasons: xiomara Intake Note: pt is here for follow up of XIOMARA, and he feels okay cpap is going good, was on vacation missed a couple of days. 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: No Allergies No Known Allergies Allergy (Verified 01/18/24 11:50) Medication List - Last Reconciled 01/18/24 by David Rider MD blood pressure monitor (Blood Pressure Kit) As directed XL cuff carbamazepine 200 mg PO BID clotrimazole 1% 1 appl topical BID 4 weeks [CPAP As directed] cyanocobalamin (vitamin B-12) 1,000 mcg PO DAILY docusate sodium 100 mg PO BEDTIME hydrocortisone 2.5% (Anusol-HC) 1 appl [place] BID-QID PRN lisinopril 5 mg PO DAILY sildenafil 50 mg PO DAILY PRN simvastatin 20 mg PO BEDTIME Do you need a note to return to daycare/school/sports/work: No HPI HPI xiomara: Details: 53 YEARS OLD GENTLEMAN, MORBIDLY OBESE WITH DIAGNOSIS OF OBSTRUCTIVE SLEEP APNEA. 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 USES CPAP VERY REGULARLY EVERY NIGHT EXCEPT WHEN HE IS AWAY FROM THE HOUSE, SLEEPS GOOD. HE HAS NO ISSUE. 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 WEIGHT UNCHANGED . FORMERLY [facility] Medical History Nocturnal hypoxemia Morbid obesity Colon cancer screening Patel's palsy Hypertension Obesity Hypercholesterolemia Surgical History Meniscal injury Family History Brother Substance abuse Paternal Grandmother Cancer Father HTN (hypertension) Mother Borderline diabetes Seizures High cholesterol Dementia Social History Housing: House Are you a primary home child care provider to a significant other at home: No Do you presently have visiting nurse or other home services: No Alcohol intake: current Alcohol intake frequency: holidays/special occasions only Comment: once Q 4 month2-3 drinks Patient Tobacco Use Status: Former Tobacco user Tobacco use type: Cigarette Years Smoked: quit 1998 e-Cigarette/Vaping Use: Never Used Second Hand Smoke Exposure: No service: No Current occupational status: employed Cognitive needs: No Hearing needs: No Vision needs: No Review of Systems Const All systems reviewed & are unremarkable except as noted in HPI and below Eyes Reports no additional complaints ENT Reports no additional complaints Card Denies chest pain, Denies irregular heart rhythm and Denies leg edema Resp Reports no additional complaints GI Reports no additional complaints Reports no additional complaints Musc Reports no additional complaints Skin/Breast Reports system reviewed and no additional complaints, except as documented Physical Exam Vital Signs: Last Vital Signs Pulse 61 01/18/24 11:29 BP 150/80 H 01/18/24 11:29 Pulse Ox 95 01/18/24 11:29 Oxygen Delivery Method Room Air 01/18/24 11:29 BMI result Body Mass Index 47.6 Const General: healthy appearing (Except for being grossly overweight), comfortable, no acute distress, alert and awake Orientation/consciousness: patient oriented x3 HEENT Head: Yes normal to inspection General nose exam: No nasal polyps present and No nasal discharge present Face and sinus: Yes sinuses nontender Mouth: oropharynx normal Throat: Yes posterior oropharynx normal Eyes General: appearance normal, both eyes and all related structures Neck Neck: Yes normal visual inspection, Yes no lymphadenopathy, Yes trachea midline and Yes no JVD Thyroid: Thyroid normal Chest Chest palpation & inspection: normal inspection of the chest, normal palpation of entire chest wall and no tenderness Resp Effort & Inspection: normal respiratory effort Auscultation: clear to auscultation bilaterally Percussion: percussion normal Cardio Palpation: normal PMI Rate: regular rate Rhythm: regular rhythm Heart sounds: no gallops and no murmurs Peripheral pulses: Peripheral pulses 2+ throughout GI Palpation (GI): Soft to palpation, nontender, No hepatosplenomegaly present and no masses Auscultation: normal bowel sounds Back/Spine/Pelvis Thoracic/Lumbar Spine: thoracic and lumbar spine normal to inspection Skin General skin exam: no rashes or lesions noted Neuro General: patient oriented x3 and no focal motor deficits Cranial nerves: Yes CN's II-XII intact bilaterally Extrem General: Yes normal to inspection, Yes no clubbing, cyanosis or edema and Yes no calf tenderness Psych Speech and movement: Normal speech and movement present Results Reviewed Results Reviewed: COMPLIANCE REPORT FOR THE LAST 30 NIGHTS IS REVIEWED HE HAS USED EVERY NIGHT BUT MISSED ABOUT 4 NIGHTS BECAUSE HE WAS AWAY FROM THE HOUSE. AVERAGE USE IT PER NIGHT 5 HOURS 41 MINUTES. PRESSURE USED 11-13 CM. THERE IS NO SIGNIFICANT AIR LEAK. AND RESIDUAL AHI 0.4 Assessment & Plan Assessment & Plan (1) Morbid obesity: Comment: CONTINUES TO BE MORBIDLY OBESE, BUT OTHERWISE HEALTHY LOOKING. HE HAS BEEN WATCHING HIS DIET BUT HAS NOT BEEN ABLE TO WALK DURING WINTER . HE CANNOT JOIN WEIGHT MANAGEMENT PROGRAM. Code(s): E66.01 - Morbid (severe) obesity due to excess calories Category: Medical Plan: AGAIN DISCUSSED ABOUT THE WEIGHT AND ADVISED HIM TO START WALKING MORE DURING THE SUMMER MONTHS. ALSO ADVISED TO JOIN SOME EXERCISE PROGRAM. (2) Obstructive sleep apnea: Comment: HE HAS RATHER SEVERE OBSTRUCTIVE SLEEP APNEA WITH NOCTURNAL HYPOXEMIA. IT IS BEING TREATED SUCCESSFULLY WITH THE CPAP, AND HE IS VERY COMPLIANT. HIS SLEEP IS GOOD . HE IS DEFINITELY BENEFITTING FROM THE USE OF CPAP. Code(s): G47.33 - Obstructive sleep apnea (adult) (pediatric) Category: Medical Plan: ADVISED TO CONTINUE USING THE CPAP REGULARLY AND IT WILL BE BETTER IF HE COULD USE AT LEAST 6 HOURS PER NIGHT. WERE ALSO TRY TO GET HIM A 2ND CPAP DEVICE THAT HE CAN KEEP AT PLACE OF WORK. Coding Level of Care Code Est Pt Level 3 (37056) Diagnoses Morbid obesity E66.01 Obstructive sleep apnea G47.33
== END 2024-01-18 11:51 | disposition home or self-care (01) ==
PROVIDERS: PCP Internal Medicine; Visit Provider Internal Medicine
DX: E66.01 Morbid (severe) obesity due to excess calories (principal); G47.33 Obstructive sleep apnea (adult) (pediatric)
CPT/HCPCS: 99213

== ENCOUNTER → 2024-01-18 11:26 | Outpatient (BNVA) | payer OTHER, SELFPAY | PROVIDERS: PCP Internal Medicine; Visit Provider Internal Medicine ==

== ENCOUNTER 2024-02-15 08:08 | Outpatient (AMB) | payer OTHER, SELFPAY ==
--- NOTE | 2024-02-15 08:14 | MHC.OFFVIS ---
Vital Signs 02/15/24 08:15 Height 5 ft 8 in Weight 308 lb 10.354 oz BMI 46.9 BP 139/67 Blood Pressure Location Lt brachial Position Sitting Pulse 55 Intake Visit Reasons: 1 year fu Intake Note: Gilbert presents in the office as a 1 year follow up. CC: Denies any GI concerns at this time. Dental Hygienist Required: No Allergies No Known Allergies Allergy (Verified 02/15/24 08:16) HPI HPI 1 year fu: Details: LAST VISIT: GERD (gastroesophageal reflux disease) Continue avoiding dietary triggers in late night snacking. Staying upright her minimum 3 hours after meals discussed with patient. Patient can take [id number] Pepcid if needed Hemorrhoids without complication Will reorder Proctosol. Patient was encouraged to start taking Colace to help him soft in his stool. Lalo mensah advised specially when he is sitting for long periods. Patient will follow-up with me in 1 year, sooner on as needed basis. Patient is agreeable to this plan and verbalizes understanding of instructions. He was given the opportunity to ask questions and all questions answered. ? Thank you for allowing me to participate in his care Plan Medications Changed From docusate sodium 100 mg PO BEDTIME PRN K59.00 - Constipation, unspecified To docusate sodium 100 mg PO BEDTIME 90 caps 2RF K59.00 - Constipation, unspecified Refilled hydrocortisone 2.5% (Anusol-HC) use as directed 1 appl [place] BID-QID PRN 30 grams 3RF hemorrhoids K64.9 - Unspecified hemorrhoids TODAY'S VISIT Patient is here today for follow-up. Patient reports that he has been feeling well since last visit. Occasional hemorrhoids felt externally after bowel movement. Occasional blood after bowel movement and some discomfort. Patient continues to Anusol hemorrhoidal cream and uses Colace. Patient denies melena and actual hematochezia. Denies any GI concerning symptoms. [facility] Medical History Nocturnal hypoxemia Morbid obesity Colon cancer screening Patel's palsy Hypertension Obesity Hypercholesterolemia Surgical History Meniscal injury Family History Brother Substance abuse Paternal Grandmother Cancer Father HTN (hypertension) Mother Borderline diabetes Seizures High cholesterol Dementia Social History Housing: House Are you a primary career development facilitator to a significant other at home: No Do you presently have visiting nurse or other home services: No Alcohol intake: current Alcohol intake frequency: holidays/special occasions only Comment: once Q 4 month2-3 drinks Patient Tobacco Use Status: Former Tobacco user Tobacco use type: Cigarette Years Smoked: quit 1998 e-Cigarette/Vaping Use: Never Used Second Hand Smoke Exposure: No service: No Current occupational status: employed Cognitive needs: No Hearing needs: No Vision needs: No Review of Systems Const Denies weight gain and Denies weight loss ENT Reports no additional complaints, Denies dysphagia and Denies odynophagia Card Reports no additional complaints Resp Reports no additional complaints GI Denies abdominal pain, Denies belching, Denies melena, Denies bloating, Denies change in bowel habits, Denies dysphagia, Denies excessive flatus, Denies dyspepsia, Denies heartburn, Denies diarrhea, Denies loose stools, Denies nausea, Denies odynophagia and Denies vomiting Reports no additional complaints Musc Reports no additional complaints Neuro Reports no additional complaints Psych Reports no additional complaints Endo Reports no additional complaints Physical Exam Vital Signs: Last Vital Signs Pulse 55 02/15/24 08:15 BP 139/67 02/15/24 08:15 BMI result Body Mass Index 46.9 Const General: healthy appearing and no acute distress Nutritional Appearance: obese Orientation/consciousness: patient oriented x3 Resp Effort & Inspection: normal respiratory effort, able to speak in complete sentences, no tracheal deviation and symmetric chest movement Auscultation: clear to auscultation bilaterally Cardio Rate: regular rate GI Inspection: Yes normal to inspection, No distended and Yes obesity Palpation (GI): Soft to palpation, not firm, nontender and No hepatosplenomegaly present Auscultation: normal bowel sounds General: Yes no CVA tenderness Back/Spine/Pelvis Back: no CVA tenderness Skin General skin exam: elasticity normal, turgor normal and dry skin Neuro General: patient oriented x3 Psych Appearance: grossly normal Mental Status: mental status grossly normal Assessment & Plan Assessment & Plan (1) GERD (gastroesophageal reflux disease): Code(s): K21.9 - Gastro-esophageal reflux disease without esophagitis Category: Medical Qualifiers: Esophagitis presence: esophagitis presence not specified Qualified Code(s): K21.9 - Gastro-esophageal reflux disease without esophagitis (2) Hemorrhoids without complication: Code(s): K64.9 - Unspecified hemorrhoids Plan Continue stool softener. Increase fluid intake and activity to promote better bowel motility. May use Anusol cream, suppositories ordered. Patient will follow-up with PCP. Will be due for colonoscopy in 4 years. Patient will call our office if his hemorrhoids will get worse will referred to surgery. Patient wants to hold off for now. Patient is agreeable to this plan and verbalizes understanding of instructions. He was given the opportunity to ask questions and all questions answered. Thank you for allowing me to participate in his care Medications: New hydrocortisone acetate (Anucort-HC) 25 mg UT BID 24 ea 2RF Refilled docusate sodium 100 mg PO BEDTIME 90 caps 2RF K59.00 - Constipation, unspecified hydrocortisone 2.5% (Anusol-HC) use as directed 1 appl [place] BID-QID PRN 30 grams 3RF hemorrhoids K64.9 - Unspecified hemorrhoids Coding Level of Care Code Est Pt Level 3 (23756) Diagnoses Gastroesophageal reflux disease, unspecified whether esophagitis present K21.9 Esophagitis presence: esophagitis presence not specified Hemorrhoids without complication K64.9 Time Spent (min) 25 Comment 15 minutes spent with patient and additional 10 minutes spent reviewing his records
[2024-02-15 08:15] VITALS: BP 139/67; PULSE 55; BMI 46.9
== END 2024-02-15 08:55 | disposition home or self-care (01) ==
PROVIDERS: PCP Internal Medicine; Visit Provider Nurse Practitioner Family
DX: K21.9 Gastro-esophageal reflux disease without esophagitis (principal); K64.9 Unspecified hemorrhoids
CPT/HCPCS: 99213

== ENCOUNTER → 2024-02-15 08:08 | Outpatient (BNVA) | payer OTHER, SELFPAY | PROVIDERS: PCP Internal Medicine; Visit Provider Nurse Practitioner Family ==

== ENCOUNTER 2024-04-11 07:35 | Outpatient (REF) | payer OTHER, SELFPAY ==
[2024-04-11 08:04] LABS: Estimated Average Glucose 117 mg/dL; Hemoglobin A1c % 5.7 % (<6.0)
[2024-04-11 08:12] LABS: Alanine Aminotransferase 18 U/L (0-40); Albumin Level 3.9 g/dL (3.5-5.0); Alkaline Phosphatase 63 U/L (39-117); Anion Gap 12 (12-20); Aspartate Amino Transferase 14 U/L (5-37); Bilirubin Total 0.3 mg/dL (0.0-1.0); Blood Urea Nitrogen 18 mg/dL (9-16); Carbon Dioxide 24 mmol/L (22-29); Chloride 110 mmol/L (96-108); Cholesterol 181 mg/dL (<200); Estimated Glomerular Filt Rate > 60; Glucose Random 119 mg/dL (60-115); HDL Cholesterol 34 mg/dL (>40); LDL Cholesterol Calculated 122 mg/dL (<100); Potassium 4.1 mmol/L (3.3-5.1); Sodium 142 mmol/L (135-145); Total Protein 6.6 g/dL (6.5-8.0); Triglycerides 126 mg/dL (<150)
[2024-04-11 08:28] LABS: Free T4 (Free Thyroxine) 0.76 ng/dL (0.71-1.85); Thyroid Stimulating Hormone 1.11 uIU/mL (0.32-4.0)
[2024-04-11 08:39] LABS: Prostate Specific Antigen Scr 2.54 ng/mL (<0.05-4.0)
== END 2024-04-11 07:36 | disposition home or self-care (01) ==
LOC: HO.LAB 07:35
PROVIDERS: PCP Internal Medicine; Visit Provider Internal Medicine
DX: Z00.00 Encounter for general adult medical examination without abnormal findings (principal); E78.00 Pure hypercholesterolemia, unspecified; R73.02 Impaired glucose tolerance (oral); Z12.5 Encounter for screening for malignant neoplasm of prostate
CPT/HCPCS: 36415; 80053; 80061; 83036; 84153; 84439; 84443

== ENCOUNTER 2024-04-19 15:57 | Outpatient (REF) | payer OTHER, SELFPAY ==
--- NOTE | ~2024-04-19 | MR_ITS ---
EXAMINATION: MR BRAIN WITHOUT AND WITH CONTRAST CLINICAL INFORMATION: Trigeminal neuralgia. Right tongue numbness. Patient also states right-sided jaw pain for 5+ years. COMPARISON: No prior MR. The head without contrast 04/15/2016 Please note, due to [facility] contractual, systems, and staffing issues, an [facility] radiologist was not available for review and dictation of this case until 05/04/2024. TECHNIQUE: Multiplanar, multisequence MRI of the brain was obtained before and after the intravenous administration of 10 mL Gadavist. Exam was performed on a 1.5 Akilah Siemens magnet. Standard sequences utilized. Thin section axial and coronal sequences were performed through the skull base to include the 5th nerves. FINDINGS: -There is no diffusion restriction. -There is no intracranial hemorrhage, acute infarction, mass effect, or edema. -Ventricles, sulci, and cisterns are normal in size and configuration for patient age. No shift of midline. Basal cisterns are patent. -There are a few scattered punctate and minimally confluent foci of white matter T2 hyperintensity in the periventricular, subcortical, and hemispheric deep white matter, nonspecific, but most likely sequela of microvascular ischemia. -Midline structures appear normally formed. The pituitary gland is normal in contour. There are 3 small T2 hyperintense nonenhancing cystic foci in the left posterior gland, largest measuring 3 mm, uncertain etiology or significance. (Series 19, image 55). -Posterior fossa structures appear normal. Cerebellar tonsils are appropriately located. -Major flow voids are preserved within the skull base. -After contrast administration, there is no abnormal intra or extra-axial contrast enhancement. -The 5th cranial nerves are normal in caliber and course. Normal CSF signal in Meckel's caves. No abnormal enhancement. -A small vascular structure appears to directly abut the superior cisternal segment of the right 5th nerve. (Series 19, image [id number]). -Other major cranial nerves are normal in caliber and course. -The globes and orbital contents demonstrate no abnormalities. -Paranasal sinuses are clear bilaterally. -The mastoids and tympanic cavities are normally aerated. -Extracranial soft tissues demonstrate retropharyngeal course of the ICAs. Mildly prominent adenoidal soft tissues present, presumably reactive. -No suspicious bone marrow changes are evident. TM joints demonstrate no significant arthritic change. -Atlantoaxial joint demonstrates moderate degenerative changes. MR/MR head/brain wo/w con IMPRESSION: 1. No evidence of intracranial hemorrhage, acute infarction, mass effect, edema, or abnormal enhancement. 2. The 5th cranial nerves are normal in course and caliber, and Meckel's caves are normal in signal. Of note, a small vessel abuts the superior cisternal segment of the right 5th nerve. 3. There are 3 tiny nonenhancing cystic foci in the left posterior pituitary gland, of uncertain etiology or significance. 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 4. There are very mild changes of microvascular ischemia in the supratentorial white matter. 5. No gross arthritic changes within the TM joints. Electronically signed by: Bill Goldstein MD 05/04/2024 03:15 PM EDT
[2024-04-19] MEDS: gadobutroL 10 ML VIAL IVPUSH (16:47)
== END 2024-04-19 15:58 | disposition home or self-care (01) ==
LOC: HO.MRI 15:57
PROVIDERS: PCP Internal Medicine; Visit Provider Psychiatry & Neurology Neurology
DX: G50.0 Trigeminal neuralgia (principal)
CPT/HCPCS: 70553; A9585

== ENCOUNTER → 2024-04-19 16:14 | Outpatient (BNV) | payer OTHER, SELFPAY | PROVIDERS: PCP Internal Medicine; Visit Provider Radiology Diagnostic Radiology | DX: G50.0 Trigeminal neuralgia (principal) | CPT/HCPCS: 70553 ==

== ENCOUNTER 2024-04-23 10:59 | Outpatient (AMB) | payer OTHER, SELFPAY ==
[2024-04-23 11:14] VITALS: BP 136/80; PULSE 65; O2SAT 95; BMI 46.6
--- NOTE | 2024-04-23 11:14 | MHC.PC.OV ---
Vital Signs 04/23/24 11:14 Height 5 ft 8 in Weight 306 lb 6 oz BMI 46.6 BP 136/80 Blood Pressure Location Lt brachial Position Sitting Pulse 65 Pulse Source Pulse Oximeter Pulse Oximetry (%) 95 Oxygen Delivery Method Room Air Intake Visit Reasons: 3 Month Follow Up Hydro Station Supervisor Required: No Accompanied by: Self / Same As Patient Allergies No Known Allergies Allergy (Verified 04/23/24 11:15) Medication List - Last Reconciled 04/23/24 by Taylor Reyes MD blood pressure monitor (Blood Pressure Kit) As directed XL cuff carbamazepine 200 mg PO BID clotrimazole 1% 1 appl topical BID 4 weeks [CPAP As directed] cyanocobalamin (vitamin B-12) 1,000 mcg PO DAILY docusate sodium 100 mg PO BEDTIME hydrocortisone 2.5% (Anusol-HC) 1 appl [place] BID-QID PRN hydrocortisone acetate (Anucort-HC) 25 mg [place] BID lisinopril 5 mg PO DAILY sildenafil 50 mg PO DAILY PRN simvastatin 10 mg PO BEDTIME Tobacco use date assessed: 12/07/23 Dental Screening Dental Screen Date: 12/07/23 HPI 3 Month Follow Up HPI Details 53-year-old morbidly obese male with obstructive sleep apnea hypertension hypercholesterolemia impaired glucose tolerance last seen in 12/26/2023. Patient is up-to-date with colonoscopy 11/25/2021. Review of the notes has history of trigeminal neuralgia of the right side of the face and had an MRI done in April 19 2024. Patient was seen by the floor technician also in February for GERD and hemorrhoids. For the sleep apnea follows up with Pulmonary January 2024 CPAP compliant more than 4 hours a night and benefits from this. Advised if he could use it least 6 hours per night. [facility] Medical History Nocturnal hypoxemia Morbid obesity Colon cancer screening Patel's palsy Hypertension Obesity Hypercholesterolemia Surgical History Meniscal injury Family History Brother Substance abuse Paternal Grandmother Cancer Father HTN (hypertension) Mother Borderline diabetes Seizures High cholesterol Dementia Social History Housing: House Are you a primary point of care technician to a significant other at home: No Do you presently have visiting nurse or other home services: No Alcohol intake: current Alcohol intake frequency: holidays/special occasions only Comment: once Q 4 month2-3 drinks Patient Tobacco Use Status: Former Tobacco user Tobacco use type: Cigarette Years Smoked: quit 1998 e-Cigarette/Vaping Use: Never Used Second Hand Smoke Exposure: No service: No Current occupational status: employed Cognitive needs: No Hearing needs: No Vision needs: No Questionnaire Thrive Questionnaire Date Thrive assessed: 12/07/23 Are you currently unemployed and looking for a job?: No STEFANY-7 AMB Questionnaire STEFANY-7 Date STEFANY - 7 assessed: 12/07/23 Source: Developed by Drs. Silvino Julio, Enid Parra, Aldo Haney and colleagues, with an educational brock from [employer]. Physical exam (Primary Care) Vital Signs: Last Vital Signs Pulse 65 04/23/24 11:14 BP 136/80 04/23/24 11:14 Pulse Ox 95 04/23/24 11:14 Oxygen Delivery Method Room Air 04/23/24 11:14 BMI result Body Mass Index 46.6 Tobacco/Smoking Status: Tobacco use Status Tobacco use date assessed 12/07/23 04/23/24 11:16 Patient Tobacco Use Status Former Tobacco user 04/23/24 11:16 Tobacco use type Cigarette 04/23/24 11:16 e-Cigarette/Vaping Use Never Used 04/23/24 11:16 Thrive Assessment: Date of Thrive Assessment Date Thrive assessed 12/07/23 04/23/24 11:16 Const General: alert; No acute distress Eyes Conjunctivae: conjunctivae normal Resp Auscultation: clear to auscultation bilaterally Cardio Rate: regular rate Rhythm: regular rhythm GI Inspection: Yes normal to inspection Extrem General: Yes normal to inspection and No edema Assessment and Plan Assessment & Plan (1) Impaired glucose tolerance: Code(s): R73.02 - Impaired glucose tolerance (oral) Plan: Decrease the amount of carbohydrate intake, pasta, bread, rice and potatoes are all sugar and that is aside from all the sweet stuff, remember that fruits are good but they are Sweet also. (2) Morbid obesity: Comment: CONTINUES TO BE MORBIDLY OBESE, BUT OTHERWISE HEALTHY LOOKING. HE HAS BEEN WATCHING HIS DIET BUT HAS NOT BEEN ABLE TO WALK DURING WINTER . HE CANNOT JOIN WEIGHT MANAGEMENT PROGRAM. Code(s): E66.01 - Morbid (severe) obesity due to excess calories Plan: Diet and exercise (3) Obstructive sleep apnea: Comment: HE HAS RATHER SEVERE OBSTRUCTIVE SLEEP APNEA WITH NOCTURNAL HYPOXEMIA. IT IS BEING TREATED SUCCESSFULLY WITH THE CPAP, AND HE IS VERY COMPLIANT. HIS SLEEP IS GOOD . HE IS DEFINITELY BENEFITTING FROM THE USE OF CPAP. Code(s): G47.33 - Obstructive sleep apnea (adult) (pediatric) Plan: Continues use of the CPAP more than 4 hours a night and benefits from this has been advised by Pulmonary to use it more than 6 hours. (4) GERD (gastroesophageal reflux disease): Code(s): K21.9 - Gastro-esophageal reflux disease without esophagitis Qualifiers: Esophagitis presence: esophagitis presence not specified Qualified Code(s): K21.9 - Gastro-esophageal reflux disease without esophagitis Plan: Avoid the foods that causes that usually spicy foods, tomato products, juices, coffee, soda and foods that your sensitive to. After eating do not lie down, allow 3-4 hours before in lie down. And keep the head of bed above 30 degrees to avoid the acid from going up. (5) Hypertension: Code(s): I10 - Essential (primary) hypertension Plan: Continue with blood pressure medication. Decrease salt intake and exercise presently on lisinopril 5 mg once a day (6) Hypercholesterolemia: Code(s): E78.00 - Pure hypercholesterolemia, unspecified Plan: Avoid fried foods, chicken skin, eggs, butter margarine, pastries and meat. Be it pork or beef they have a lot of cholesterol takes simvastatin 10 mg once a night and has done the blood work good. (7) Trigeminal neuralgia of right side of face: Code(s): G50.0 - Trigeminal neuralgia Orders: Orders Carbamazepine Tegretol 6 Months G50.0 - Trigeminal neuralgia Comprehensive Met. Panel 6 Months R73.02 - Impaired glucose tolerance (oral) Complete Blood Count Auto Diff 6 Months R73.02 - Impaired glucose tolerance (oral) Lipid Panel 6 Months E78.00 - Pure hypercholesterolemia, unspecified, R73.02 - Impaired glucose tolerance (oral) Thyroid Stimulating Hormone 6 Months R73.02 - Impaired glucose tolerance (oral) Free T4 (Free Thyroxine) 6 Months R73.02 - Impaired glucose tolerance (oral) Hemoglobin A1c 6 Months R73.02 - Impaired glucose tolerance (oral) Vitamin B12 and Folate 6 Months R73.02 - Impaired glucose tolerance (oral) Prostate Specific Antigen Scr 6 Months R73.02 - Impaired glucose tolerance (oral) Referrals Bariatric Surgery Referral E66.01 - Morbid (severe) obesity due to excess calories Coding Level of Care Code Est Pt Level 4 (72720) Diagnoses Impaired glucose tolerance R73.02 Morbid obesity E66.01 Obstructive sleep apnea G47.33 Gastroesophageal reflux disease, unspecified whether esophagitis present K21.9 Esophagitis presence: esophagitis presence not specified Hypertension I10 Hypercholesterolemia E78.00 Trigeminal neuralgia of right side of face G50.0
== END 2024-04-23 11:40 | disposition home or self-care (01) ==
PROVIDERS: PCP Internal Medicine; Visit Provider Internal Medicine
DX: R73.02 Impaired glucose tolerance (oral) (principal); E66.01 Morbid (severe) obesity due to excess calories; G47.33 Obstructive sleep apnea (adult) (pediatric); K21.9 Gastro-esophageal reflux disease without esophagitis; I10 Essential (primary) hypertension; E78.00 Pure hypercholesterolemia, unspecified; G50.0 Trigeminal neuralgia

== ENCOUNTER → 2024-04-23 10:59 | Outpatient (BNVA) | payer OTHER, SELFPAY | PROVIDERS: PCP Internal Medicine; Visit Provider Internal Medicine | DX: R73.02 Impaired glucose tolerance (oral) (principal); E66.01 Morbid (severe) obesity due to excess calories; G47.33 Obstructive sleep apnea (adult) (pediatric); K21.9 Gastro-esophageal reflux disease without esophagitis; I10 Essential (primary) hypertension; E78.00 Pure hypercholesterolemia, unspecified; G50.0 Trigeminal neuralgia; Z68.42 Body mass index [BMI] 45.0-49.9, adult ==

== ENCOUNTER → 2024-04-27 10:17 | Outpatient (BNVA) | payer OTHER, SELFPAY | PROVIDERS: PCP Internal Medicine; Visit Provider Physician Assistant Surgical ==

== ENCOUNTER 2024-07-24 11:30 | Outpatient (AMB) | payer OTHER, SELFPAY ==
[2024-07-24 11:36] VITALS: BP 132/78; PULSE 70; O2SAT 96; BMI 48.3
--- NOTE | 2024-07-24 11:36 | A.OFFVIS_ITS ---
Vital Signs 07/24/24 11:36 Height 5 ft 8 in Weight 317 lb 7.45 oz BMI 48.3 BP 132/78 Blood Pressure Location Lt radial Position Sitting Pulse 70 Pulse Source Pulse Oximeter Pulse Oximetry (%) 96 Oxygen Delivery Method Room Air Intake Visit Reasons: Obstructive sleep apnea Intake Note: pt is here for follow up and states he is doing well with cpap, Office Machine Installer Required: No Allergies No Known Allergies Allergy (Verified 07/24/24 11:42) Medication List - Last Reconciled 07/24/24 by David Rider MD blood pressure monitor (Blood Pressure Kit) As directed XL cuff carbamazepine 200 mg PO BID clotrimazole 1% 1 appl topical BID 4 weeks [CPAP As directed] cyanocobalamin (vitamin B-12) 1,000 mcg PO DAILY docusate sodium 100 mg PO BEDTIME hydrocortisone 2.5% (Anusol-HC) 1 appl [place] BID-QID PRN hydrocortisone acetate (Anucort-HC) 25 mg [place] BID lisinopril 5 mg PO DAILY sildenafil 50 mg PO DAILY PRN simvastatin 10 mg PO BEDTIME Do you need a note to return to daycare/school/sports/work: No HPI HPI Obstructive sleep apnea: Details: This 53 years old grossly obese gentleman, comes for follow-up after 6 months. He is a case of morbid obesity and obstructive sleep apnea. Uses CPAP very regularly, currently his CPAP device is not working well and he is using a loaner unit. Sleeps good with the CPAP. Denies any daytime sleepiness. He is not in any particular weight management program. He is not losing weight, rather lately he has put on some weight, that he is not aware of. [facility] Medical History Nocturnal hypoxemia Morbid obesity Colon cancer screening Patel's palsy Hypertension Obesity Hypercholesterolemia Surgical History Meniscal injury Family History Brother Substance abuse Paternal Grandmother Cancer Father HTN (hypertension) Mother Borderline diabetes Seizures High cholesterol Dementia Social History Housing: House Are you a primary critical care educator to a significant other at home: No Do you presently have visiting nurse or other home services: No Alcohol intake: current Alcohol intake frequency: holidays/special occasions only Comment: once Q 4 month2-3 drinks Patient Tobacco Use Status: Former Tobacco user Tobacco use type: Cigarette Years Smoked: quit 1998 e-Cigarette/Vaping Use: Never Used Second Hand Smoke Exposure: No service: No Current occupational status: employed Cognitive needs: No Hearing needs: No Vision needs: No Review of Systems Const All systems reviewed & are unremarkable except as noted in HPI and below Eyes Reports no additional complaints ENT Reports no additional complaints Card Denies chest pain, Denies irregular heart rhythm and Denies leg edema Resp Reports no additional complaints GI Reports no additional complaints Reports no additional complaints Musc Reports no additional complaints Skin/Breast Reports system reviewed and no additional complaints, except as documented Physical Exam Vital Signs: Last Vital Signs Pulse 70 07/24/24 11:36 BP 132/78 07/24/24 11:36 Pulse Ox 96 07/24/24 11:36 Oxygen Delivery Method Room Air 07/24/24 11:36 BMI result Body Mass Index 48.3 Const General: healthy appearing (Except for being grossly overweight), comfortable, no acute distress, alert and awake Orientation/consciousness: patient oriented x3 HEENT Head: Yes normal to inspection General nose exam: No nasal polyps present and No nasal discharge present Face and sinus: Yes sinuses nontender Mouth: oropharynx normal Throat: Yes posterior oropharynx normal Eyes General: appearance normal, both eyes and all related structures Neck Neck: Yes normal visual inspection, Yes no lymphadenopathy, Yes trachea midline and Yes no JVD Thyroid: Thyroid normal Chest Chest palpation & inspection: normal inspection of the chest, normal palpation of entire chest wall and no tenderness Resp Effort & Inspection: normal respiratory effort Auscultation: clear to auscultation bilaterally Percussion: percussion normal Cardio Palpation: normal PMI Rate: regular rate Rhythm: regular rhythm Heart sounds: no gallops and no murmurs Peripheral pulses: Peripheral pulses 2+ throughout GI Palpation (GI): Soft to palpation, nontender, No hepatosplenomegaly present and no masses Auscultation: normal bowel sounds Back/Spine/Pelvis Thoracic/Lumbar Spine: thoracic and lumbar spine normal to inspection Skin General skin exam: no rashes or lesions noted Neuro General: patient oriented x3 and no focal motor deficits Cranial nerves: Yes CN's II-XII intact bilaterally Extrem General: Yes normal to inspection, Yes no clubbing, cyanosis or edema and Yes no calf tenderness Psych Speech and movement: Normal speech and movement present Results Reviewed Results Reviewed: Compliance report is reviewed. It shows that he has used 27/30 nights, 90% of the night. Average use it per night 6 hours 38 minutes. Pressure used mostly 8-13 cm. There is not much air leak. And residual AHI only 0.5 Assessment & Plan Assessment & Plan (1) Morbid obesity: Comment: CONTINUES TO BE MORBIDLY OBESE, BUT OTHERWISE HEALTHY LOOKING. HE HAS BEEN WATCHING HIS DIET BUT HAS NOT BEEN ABLE TO WALK DURING WINTER . HE CANNOT JOIN WEIGHT MANAGEMENT PROGRAM. Code(s): E66.01 - Morbid (severe) obesity due to excess calories Category: Medical Plan: Made aware of further gain in the weight. Advised to weigh. Himself once a week Advised to tighten the dietary intake and start walking a couple miles every day. (2) Obstructive sleep apnea: Comment: HE HAS RATHER SEVERE OBSTRUCTIVE SLEEP APNEA WITH NOCTURNAL HYPOXEMIA. IT IS BEING TREATED SUCCESSFULLY WITH THE CPAP, AND HE IS VERY COMPLIANT. HIS SLEEP IS GOOD . HE IS DEFINITELY BENEFITTING FROM THE USE OF CPAP. Code(s): G47.33 - Obstructive sleep apnea (adult) (pediatric) Category: Medical Plan: Commended for good compliance and advised to keep on using the CPAP every night. (3) Nocturnal hypoxemia: Comment: IT IS PART OF THE SLEEP-RELATED HYPOVENTILATION, AND IS EXPECTED TO HAVE CORRECTED BY THE USE OF CPAP. Code(s): G47.34 - Idiopathic sleep related nonobstructive alveolar hypoventilation Category: Medical Plan: Keep on using CPAP every night Coding Level of Care Code Est Pt Level 3 (67145) Diagnoses Morbid obesity E66.01 Obstructive sleep apnea G47.33 Nocturnal hypoxemia G47.34
== END 2024-07-24 11:49 | disposition home or self-care (01) ==
PROVIDERS: PCP Internal Medicine; Visit Provider Internal Medicine
DX: E66.01 Morbid (severe) obesity due to excess calories (principal); G47.33 Obstructive sleep apnea (adult) (pediatric); G47.34 Idiopathic sleep related nonobstructive alveolar hypoventilation
CPT/HCPCS: 99213

== ENCOUNTER → 2024-07-24 11:30 | Outpatient (BNVA) | payer OTHER, SELFPAY | PROVIDERS: PCP Internal Medicine; Visit Provider Internal Medicine ==

== ENCOUNTER 2024-11-29 11:43 | Outpatient (REF) | payer OTHER, SELFPAY ==
[2024-11-29 11:57] LABS: MANUAL DIFF FLAG NO
[2024-11-29 12:32] LABS: Basophils Percent Auto 0.4 % (0-2); Eosinophils Absolute Auto 0.2 X10*3/uL (0.0-0.4); Eosinophils Percent Auto 3.1 % (0-4); Hematocrit 45.2 % (42.0-52.0); Hemoglobin 15.3 g/dl (14.0-18.0); Imm Gran Abs Auto 0.02 X10*3/uL (0.00-0.03); Imm Gran Pct Auto 0.3 % (0.0-0.4); Lymphocytes Absolute Auto 1.5 X10*3/uL (1.2-4.9); Lymphocytes Percent Auto 21.7 % (20-40); Mean Corpuscular HGB Conc 33.8 g/dl (31.0-36.0); Mean Corpuscular Hemoglobin 28.3 pg (27.0-33.0); Mean Corpuscular Volume 83.7 fL (80.0-98.0); Mean Platelet Volume 9.9 fL (9.4-12.4); Monocytes Absolute Auto 0.5 X10*3/uL (0.1-1.2); Monocytes Percent Auto 7.3 % (2-11); Neutrophils Absolute Auto 4.7 x10*3/uL (2.0-8.3); Neutrophils Percent Auto 67.2 % (45-73); Platelet Count 179 X10*3/uL (160-400); Red Cell Distribution Width 14.4 % (11.0-16.0)
[2024-11-29 12:37] LABS: Estimated Average Glucose 128 mg/dL; Hemoglobin A1c % 6.1 % (<6.0); Total Hemoglobin (HGBA1C) 3807.4722 umol/L
[2024-11-29 13:10] LABS: Alanine Aminotransferase 28 U/L (0-40); Albumin Level 4.2 g/dL (3.5-5.0); Alkaline Phosphatase 65 U/L (39-117); Anion Gap 8 (12-20); Aspartate Amino Transferase 27 U/L (5-37); Bilirubin Total 0.4 mg/dL (0.0-1.0); Blood Urea Nitrogen 19 mg/dL (9-16); Calcium 9.2 mg/dL (8.4-10.2); Carbon Dioxide 29 mmol/L (22-29); Chloride 107 mmol/L (96-108); Cholesterol 207 mg/dL (<200); Estimated Glomerular Filt Rate > 60; Glucose Random 99 mg/dL (60-115); HDL Cholesterol 34 mg/dL (>40); LDL Cholesterol Calculated 131 mg/dL (<100); Potassium 4.8 mmol/L (3.3-5.1); Sodium 139 mmol/L (135-145); Total Protein 7.2 g/dL (6.5-8.0); Triglycerides 211 mg/dL (<150)
[2024-11-29 13:21] LABS: Free T4 (Free Thyroxine) 0.95 ng/dL (0.71-1.85); Thyroid Stimulating Hormone 1.62 uIU/mL (0.32-4.0)
[2024-11-29 13:35] LABS: Prostate Specific Antigen Scr 3.26 ng/mL (<0.05-4.0); Vitamin B12 778 pg/mL (200-900)
== END 2024-11-29 11:44 | disposition home or self-care (01) ==
LOC: HO.LAB 11:43
PROVIDERS: PCP Internal Medicine; Visit Provider Internal Medicine
DX: R73.02 Impaired glucose tolerance (oral) (principal); E78.00 Pure hypercholesterolemia, unspecified; G50.0 Trigeminal neuralgia; Z12.5 Encounter for screening for malignant neoplasm of prostate
CPT/HCPCS: 36415; 80053; 80061; 80156; 82607; 82746; 83036; 84153; 84439; 84443; 85025

== ENCOUNTER 2024-12-07 10:45 | Outpatient (AMB) | payer OTHER, SELFPAY ==
--- NOTE | 2024-12-07 10:50 | MHC.PC.OV ---
Vital Signs 12/07/24 10:51 Height 5 ft 8 in Weight 316 lb 4 oz BMI 48.1 BP 130/60 Blood Pressure Location Lt brachial Position Sitting Pulse 62 Pulse Source Pulse Oximeter Temp 97.3 F Temp Source Temporal Artery Scan Pulse Oximetry (%) 95 Oxygen Delivery Method Room Air Intake Visit Reasons: ANNUAL Intake Note: Patient is here today for a physical. Mobile Application Architect Required: No Homogenizer Operator: Not Required per policy Accompanied by: Self / Same As Patient Allergies No Known Allergies Allergy (Verified 12/07/24 10:51) Medication List - Last Reconciled 12/07/24 by Taylor Reyes MD blood pressure monitor (Blood Pressure Kit) As directed XL cuff carbamazepine 200 mg PO BID PRN clotrimazole 1% 1 appl topical BID 4 weeks [CPAP As directed] cyanocobalamin (vitamin B-12) 1,000 mcg PO DAILY docusate sodium 100 mg PO BEDTIME hydrocortisone acetate (Anucort-HC) 25 mg [place] BID lisinopril 5 mg PO DAILY sildenafil 50 mg PO DAILY PRN simvastatin 10 mg PO BEDTIME Tobacco use date assessed: 12/07/24 Dental Screening Dental Screen Date: 12/07/24 Did you have a dental visit in the last 12 months?: Yes Did you have a dental problem in the last 6 months where you did not have access to dental care?: No Was dental information given to patient?: Patient has dentist [facility] Medical History (Updated 12/07/24 @ 11:41 by Tayolr Reyes MD) Obesity Nocturnal hypoxemia Morbid obesity Colon cancer screening Patel's palsy Hypertension Hypercholesterolemia Surgical History Meniscal injury Family History (Updated 12/07/24 @ 11:20 by Taylor Reyes MD) Brother Substance abuse Myocardial infarct Paternal Grandmother Cancer Father HTN (hypertension) Mother Borderline diabetes Seizures High cholesterol Dementia Social History Housing: House Are you a primary rn patient care to a significant other at home: No Do you presently have visiting nurse or other home services: No Alcohol intake: current Alcohol intake frequency: holidays/special occasions only Comment: once Q 4 month2-3 drinks Patient Tobacco Use Status: Former Tobacco user Tobacco use type: Cigarette Years Smoked: quit 1998 e-Cigarette/Vaping Use: Never Used Second Hand Smoke Exposure: No service: No Current occupational status: employed Cognitive needs: No Hearing needs: No Vision needs: No Questionnaire PHQ-9 Over the last 2 weeks, how often have you been bothered by any of the following problems? 1. Little interest or pleasure in doing things: not at all 2. Feeling down, depressed, or hopeless: not at all 3. Trouble falling or staying asleep, or sleeping too much: not at all 4. Feeling tired or having little energy: not at all 5. Poor appetite or overeating: not at all 6. Feeling bad about yourself - or that you are a failure or have let yourself or your family down: not at all 7. Trouble concentrating on things, such as reading the newspaper or watching television: not at all 8. Moving or speaking so slowly that other people could have noticed. Or the opposite - being so fidgety or restless that you have been moving around a lot more than usual: not at all 9. Thoughts that you would be better off or of hurting yourself in some way: not at all Total score: 0 Depression Screening Interpretation: Negative Depression Screening Done: Yes Source: Developed by Drs. Silvino Julio, Enid Parra, Aldo Haney and colleagues, with an educational brock from [employer]. Thrive Questionnaire Date Thrive assessed: 12/07/24 I am a: Patient What is your living situation today?: I have a steady place to live Within the past 12 months, did the food you bought not last and you didn't have the money to get more?: Never true Within the past 12 months, did you worry whether your food would run out before you got money to buy more?: Never true Do you have trouble paying for medicines?: No Do you have trouble getting transportation to medical appointments?: No Do you have trouble paying your heating and electricity bill?: No Do you have trouble taking care of your child, family member or friend?: No Do you have trouble with day-to-day activities such as bathing, preparing meals, shopping, managing finances, etc.?: No Are you currently unemployed and looking for a job?: No Are you interested in more education?: No Please select the resources that you would like help with: None Currently or been in a relationship where the following occur: No concerns reported THRIVE Score: 0 AUDIT C Alcohol Use Questionnaire (AUDIT-C) 1. How often do you have a drink containing alcohol?: Monthly or less 2. How many drinks containing alcohol do you have on a typical day when you are drinking?: 1 or 2 3. How often do you have six or more drinks on one occasion?: Never Total Score: 1 STEFANY-7 AMB Questionnaire STEFANY-7 Date STEFANY - 7 assessed: 12/07/24 Feeling nervous, anxious, or on edge: 0 = Not at all Not being able to stop or control worryin = Not at all Worrying too much about different things: 0 = Not at all Trouble relaxin = Not at all Being so restless that it is hard to sit still: 0 = Not at all Becoming easily annoyed or irritable: 0 = Not at all Feeling afraid as if something awful might happen: 0 = Not at all Total STEFANY-7 score (0-4 normal; 5-9 mild; 10-14 moderate; 15-21 severe): 0 Source: Developed by Drs. Silvino Julio, Enid Parra, Aldo Haney and colleagues, with an educational brock from [employer]. Review of Systems Const Denies poor appetite and Denies weakness Eyes Denies no additional complaints ENT Reports Normal hearing present, Denies dizziness, Denies nasal congestion, Denies tinnitus and Denies sore throat Card Denies chest pain, Denies syncope, Denies rapid heart rate and Denies dyspnea Resp Denies cough and Denies dyspnea GI Denies change in stool character, Reports constipation, Denies diarrhea, Denies nausea and Denies vomiting Denies dysuria and Denies urinary frequency Neuro Reports Normal hearing present, Denies confusion, Denies dizziness, Denies syncope and Denies weakness Psych Denies confusion Physical exam (Primary Care) Vital Signs: Last Vital Signs Temp 97.3 F 12/07/24 10:51 Pulse 62 12/07/24 10:51 BP 130/60 12/07/24 10:51 Pulse Ox 95 12/07/24 10:51 Oxygen Delivery Method Room Air 12/07/24 10:51 BMI result Body Mass Index 48.1 Tobacco/Smoking Status: Tobacco use Status Tobacco use date assessed 12/07/24 12/07/24 10:59 Patient Tobacco Use Status Former Tobacco user 12/07/24 10:59 Tobacco use type Cigarette 12/07/24 10:59 e-Cigarette/Vaping Use Never Used 12/07/24 10:59 PHQ-9: PHQ-9 Score PHQ-9: Total score 0 12/07/24 11:16 Depression Screening Interpretation: Negative Thrive Assessment: Date of Thrive Assessment Date Thrive assessed 12/07/24 12/07/24 10:59 Currently or been in a relationship where the following occur: No concerns reported Const General: No confusion Orientation/consciousness: No confusion HENMT Head: Yes normocephalic Ears: external ears normal and TM's normal bilaterally Face and sinus: Yes normal facial exam Mouth: moist mucous membranes Throat: Yes tonsils normal Eyes Conjunctivae: conjunctivae normal Pupils: Equal, round and reactive pupils present and Pupil accommodation reflex normal Direct Ophthalmoscopy: normal light reflex Neck Neck: No lymphadenopathy Thyroid: Thyroid normal Chest Chest palpation & inspection: normal inspection of the chest Resp Effort & Inspection: normal respiratory effort and no audible wheezes Auscultation: clear to auscultation bilaterally, no crackles, no wheezes and lung sounds not diminished Cardio Rate: regular rate Rhythm: regular rhythm Peripheral pulses: radial pulses present and dorsalis pedis present GI Other: guaiac neg and prostate N Palpation (GI): no masses Auscultation: normal bowel sounds and normoactive bowel sounds Male General Exam: Yes normal external exam Skin General skin exam: no rashes or lesions noted Rashes: no rashes Neuro General: No confusion Cranial nerves: Yes Equal, round and reactive pupils present and Yes Normal hearing present Cognition (Neuro): normal cognition Gait exam (Neuro): Normal gait present Motor exam (neuro): 5/5 motor strength present throughout Deep tendon reflexes (DTR's): Right brachioradialis reflex intensity grade: 2+, Left brachioradialis reflex intensity grade: 2+, Right patellar reflex intensity grade: 2+ and Left patellar reflex intensity grade: 2+ Extrem General: No edema Coding Level of Care Code Est Pt Prev Care 40-64y(90938) Diagnoses Annual physical exam Z00.00 Trigeminal neuralgia of right side of face G50.0 Morbid obesity E66.01 Obstructive sleep apnea G47.33 Gastroesophageal reflux disease, unspecified whether esophagitis present K21.9 Esophagitis presence: esophagitis presence not specified Hypertension I10 Hypercholesterolemia E78.00 Impaired glucose tolerance R73.02 Family history of early CAD Z82.49 Assessment & Plan Assessment & Plan (1) Annual physical exam: Code(s): Z00.00 - Encounter for general adult medical examination without abnormal findings Category: Medical Plan: Patient is advised to eat healthy, keep well hydrated, keep active and have adequate sleep. (2) Trigeminal neuralgia of right side of face: Code(s): G50.0 - Trigeminal neuralgia Category: Medical Plan: Patient has met with a neurosurgeon and discussed about the option of doing rhizotomy/gamma knife surgery (3) Morbid obesity: Comment: CONTINUES TO BE MORBIDLY OBESE, BUT OTHERWISE HEALTHY LOOKING. HE HAS BEEN WATCHING HIS DIET BUT HAS NOT BEEN ABLE TO WALK DURING WINTER . HE CANNOT JOIN WEIGHT MANAGEMENT PROGRAM. Code(s): E66.01 - Morbid (severe) obesity due to excess calories Category: Medical Plan: Diet and exercise (4) Obstructive sleep apnea: Comment: HE HAS RATHER SEVERE OBSTRUCTIVE SLEEP APNEA WITH NOCTURNAL HYPOXEMIA. IT IS BEING TREATED SUCCESSFULLY WITH THE CPAP, AND HE IS VERY COMPLIANT. HIS SLEEP IS GOOD . HE IS DEFINITELY BENEFITTING FROM THE USE OF CPAP. Code(s): G47.33 - Obstructive sleep apnea (adult) (pediatric) Category: Medical Plan: Continue to use the CPAP more than 4 hours a night and benefits from this. (5) GERD (gastroesophageal reflux disease): Code(s): K21.9 - Gastro-esophageal reflux disease without esophagitis Category: Medical Qualifiers: Esophagitis presence: esophagitis presence not specified Qualified Code(s): K21.9 - Gastro-esophageal reflux disease without esophagitis Plan: Avoid the foods that causes that usually spicy foods, tomato products, juices, coffee, soda and foods that your sensitive to. After eating do not lie down, allow 3-4 hours before in lie down. And keep the head of bed above 30 degrees to avoid the acid from going up. (6) Hypertension: Code(s): I10 - Essential (primary) hypertension Category: Medical Plan: Continue with blood pressure medication. Decrease salt intake and exercise on lisinopril 5 mg once a day (7) Hypercholesterolemia: Code(s): E78.00 - Pure hypercholesterolemia, unspecified Category: Medical Plan: Avoid fried foods, chicken skin, eggs, butter margarine, pastries and meat. Be it pork or beef they have a lot of cholesterol on simvastatin LDL goal of less than 130 and triglyceride of less than 150 (8) Impaired glucose tolerance: Code(s): R73.02 - Impaired glucose tolerance (oral) Category: Medical Plan: Decrease the amount of carbohydrate intake, pasta, bread, rice and potatoes are all sugar and that is aside from all the sweet stuff, remember that fruits are good but they are Sweet also. (9) Family history of early CAD: Code(s): Z82.49 - Family history of ischemic heart disease and other diseases of the circulatory system Category: Medical Plan History of Present Illness The patient is a 53-year-old male presenting for a physical exam and review of chronic conditions. He has a significant history of morbid obesity, leading to hypercholesterolemia, hypertension, GERD, and obstructive sleep apnea. The patient's last colonoscopy in 2021 found a tubular adenoma. He is currently being treated for right-sided trigeminal neuralgia with Carbamazepine 200 mg twice daily. Blood tests in November 2023 indicated a Hemoglobin A1c of 6.1 and fasting blood sugar of 99 mg/dL, with elevated LDL cholesterol at 131 mg/dL and triglycerides at 211 mg/dL. Other levels, such as PSA, vitamin B12, folic acid, and thyroid, were normal. The patient uses a CPAP device effectively and has been maintaining a cholesterol management plan with simvastatin and lisinopril for hypertension. He reports difficulty in sustaining regular exercise due to his weight and is considering weight-loss injections as an option. Family history includes heart disease, with a brother who passed from a heart attack at age 65 and a mother with a pacemaker. His social history includes no significant alcohol use or smoking, and he has no known allergies. Health Maintenance - Colonoscopy performed in 2021 with findings of tubular adenoma. - Regular follow-up with a neurosurgeon for trigeminal neuralgia. - Blood work conducted in November 2023 with normal complete blood count, renal function, and electrolytes. - Monitoring of fasting blood sugar and Hemoglobin A1c due to elevated levels. - Cholesterol management with simvastatin, aiming to reduce LDL and triglycerides. - CPAP used for more than four hours nightly for obstructive sleep apnea. - Family history of heart disease addressed, considering potential risk reduction strategies. Social History - Lives with . - Does not consume alcohol regularly; last had a glass of wine about a month ago. - No smoking or recreational drug use. - Difficulty maintaining regular exercise schedules; encourages walking. - History of weight management challenges, exploring medication options like weight-loss injections. - Family history significant for heart disease; brother at 65 years due to a suspected heart attack, and mother has a pacemaker. Review of Systems - General: Denies fever. - Cardiovascular: Reports occasional chest pain, suspected heartburn, denies any significant shortness of breath, palpitations, or new onset chest pain when climbing stairs. - Respiratory: Denies shortness of breath. - Gastrointestinal: Reports occasional heartburn, no pain while eating, denies difficulty swallowing, nausea, vomiting, or blood in stools. - Genitourinary: Denies issues with urination, occasional nighttime awakening once to urinate. - Neurological: Reports controlled pain related to trigeminal neuralgia, occasional ringing in ears but no significant hearing loss. - Musculoskeletal: Denies joint pain or swelling. - Dermatological: Denies skin issues. - Psychiatric: Indicates no anxiety or depression. Physical Exam General: Cooperative, healthy appearing, comfortable, no acute distress and well developed Orientation: Patient oriented x3 Limitations: No limitations Head: Normal to inspection Ears: Hearing test indicates some loss of high-pitched sounds, but not bad enough for hearing aids Nose: Normal external nose present Face and sinus: Normal facial exam Eyes: Appearance normal, both eyes and all related structures Neck: Normal visual inspection and Yes full ROM Respiratory: Normal respiratory effort and able to speak in complete sentences. Clear to auscultation bilaterally Cardiovascular: Regular rate and rhythm. Normal S1 and S2 GI: Normal to inspection. Soft to palpation and nontender Skin: No rashes or lesions noted Neuro: Patient oriented x3 Extremities: Normal to inspection Results - Labs: Hemoglobin A1c 6.1, Fasting Blood Sugar 99 mg/dL, LDL Cholesterol 131 mg/dL, Triglycerides 211 mg/dL Plan 1. 1 suggests dietary control for glucose management. CPAP therapy remains effective for sleep apnea. Carbamazepine is maintained for trigeminal neuralgia, with potential surgical options discussed but not yet necessary. Family history of heart disease necessitates increased focus on weight management, considering Zepbound injections alongside diet and exercise. The patient will review the feasibility of further diagnostic evaluation with a CT coronary calcium score. I recommend follow-up blood work to monitor cholesterol and glucose levels, reflecting our discussions on preventive measures due to cardiovascular risk.: Patient was informed and verbally consented to the use of an ambient scribe for clinic note documentation during this visit. Discussion Notes I discussed the patient's health maintenance, focusing on hypercholesterolemia and elevated blood sugar. Simvastatin therapy is continued to manage his cholesterol levels, and Carbamazepine is used for trigeminal neuralgia. I thoroughly reviewed the option of weight-loss injections, addressing their benefits and discussing weight management through increased activity and dietary changes, while acknowledging the need to assess insurance coverage for medication. The potential need for a CT coronary calcium score was underlined due to family history, although its necessity and potential insurance challenges were noted. Follow-up in three months is planned to reassess cholesterol and blood glucose levels, with recommendations for increasing exercise and dietary modification to support long-term health goals. Patient Instructions - Continue simvastatin and lisinopril as prescribed to manage cholesterol and blood pressure. - Use the CPAP machine for at least 4 hours each night. - Follow a low-sugar, low-fat diet and exercise regularly; consider walking with your . - Be attentive to signs of increased nerve pain and report any changes. - Monitor blood sugar regularly, aiming for lower sugar intake. - Consider weight-loss injections as a discussion with your insurance provider. - Schedule the follow-up lab work to monitor cholesterol and glucose in three months. - Attend follow-up appointments and contact the office if new symptoms arise. - Stay informed on surgical options for trigeminal neuralgia if symptoms worsen. Orders: Orders Hemoglobin A1c 3 Months R73.02 - Impaired glucose tolerance (oral) Lipid Panel 3 Months E78.00 - Pure hypercholesterolemia, unspecified, R73.02 - Impaired glucose tolerance (oral) Magnesium 3 Months R73.02 - Impaired glucose tolerance (oral) Comprehensive Met. Panel 3 Months R73.02 - Impaired glucose tolerance (oral) CT Coronary Calcium Score Today Z82.49 - Family history of ischemic heart disease and other diseases of the circulatory system Medications: New tirzepatide (weight loss) (Zepbound) for 4 weeks 2.5 mg (0.5 mL) subcut QWEEK 2 mL 1RF E66.01 - Morbid (severe) obesity due to excess calories Refilled cyanocobalamin (vitamin B-12) 1,000 mcg PO DAILY 90 caps 3RF E53.8 - Deficiency of other specified B group vitamins sildenafil administer 30 minutes to 4 hours before activity 50 mg PO DAILY PRN 10 tabs 2RF sexual activity N52.9 - Male erectile dysfunction, unspecified
[2024-12-07 10:51] VITALS: BP 130/60; PULSE 62; TEMP 36.3; O2SAT 95; BMI 48.1
== END 2024-12-07 11:48 | disposition home or self-care (01) ==
LOC: HO.HMCH 10:46
PROVIDERS: PCP Internal Medicine; Visit Provider Internal Medicine
DX: Z00.00 Encounter for general adult medical examination without abnormal findings (principal); G50.0 Trigeminal neuralgia; E66.01 Morbid (severe) obesity due to excess calories; Z68.42 Body mass index [BMI] 45.0-49.9, adult; G47.33 Obstructive sleep apnea (adult) (pediatric); K21.9 Gastro-esophageal reflux disease without esophagitis; I10 Essential (primary) hypertension; E78.00 Pure hypercholesterolemia, unspecified; R73.02 Impaired glucose tolerance (oral); Z82.49 Family history of ischemic heart disease and other diseases of the circulatory system

== ENCOUNTER → 2024-12-07 10:45 | Outpatient (BNVA) | payer OTHER, SELFPAY | PROVIDERS: PCP Internal Medicine; Visit Provider Internal Medicine ==

== ENCOUNTER 2025-01-22 14:36 | Outpatient (AMB) | payer OTHER, SELFPAY ==
--- NOTE | 2025-01-22 14:38 | A.OFFVIS_ITS ---
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 Required: No Allergies No Known Allergies Allergy (Verified 01/22/25 14:43) Medication List - Last Reconciled 01/22/25 by David Rider MD blood pressure monitor (Blood Pressure Kit) As directed XL cuff carbamazepine 200 mg PO BID PRN clotrimazole 1% 1 appl topical BID 4 weeks [CPAP As directed] cyanocobalamin (vitamin B-12) 1,000 mcg PO DAILY docusate sodium 100 mg PO BEDTIME hydrocortisone acetate (Anucort-HC) 25 mg [place] BID lisinopril 5 mg PO DAILY sildenafil 50 mg PO DAILY PRN simvastatin 10 mg PO BEDTIME tirzepatide (weight loss) (Zepbound) 2.5 mg (0.5 mL) subcut QWEEK Do you need a note to return to daycare/school/sports/work: No HPI HPI xiomara: Details: This 54 years old gentleman is morbidly obese and has diagnosis of obstructive sleep apnea. He uses CPAP very regularly. 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 He uses the CPAP very. Regularly and sleep could He is getting about 6-1/2 hours sleep on a daily basis. He has no issues with the CPAP mask or the machine. His weight has remained unchanged but he is to be started on Zepbound . [facility] Medical History Obesity Nocturnal hypoxemia Morbid obesity Colon cancer screening Patel's palsy Hypertension Hypercholesterolemia Surgical History Meniscal injury Family History Brother Substance abuse Myocardial infarct Paternal Grandmother Cancer Father HTN (hypertension) Mother Borderline diabetes Seizures High cholesterol Dementia Social History Housing: House Are you a primary manager progressive care to a significant other at home: No Do you presently have visiting nurse or other home services: No Alcohol intake: current Alcohol intake frequency: holidays/special occasions only Comment: once Q 4 month2-3 drinks Patient Tobacco Use Status: Former Tobacco user Tobacco use type: Cigarette Years Smoked: quit 1998 e-Cigarette/Vaping Use: Never Used Second Hand Smoke Exposure: No service: No Current occupational status: employed Cognitive needs: No Hearing needs: No Vision needs: No Review of Systems Const All systems reviewed & are unremarkable except as noted in HPI and below Eyes Reports no additional complaints ENT Reports no additional complaints Card Denies chest pain, Denies irregular heart rhythm and Denies leg edema Resp Reports no additional complaints GI Reports no additional complaints Reports no additional complaints Musc Reports no additional complaints Skin/Breast Reports system reviewed and no additional complaints, except as documented Physical Exam Vital Signs: Last Vital Signs Pulse 67 01/22/25 14:39 BP 140/70 H 01/22/25 14:39 Pulse Ox 98 01/22/25 14:39 Oxygen Delivery Method Room Air 01/22/25 14:39 BMI result Body Mass Index 48.1 Const General: healthy appearing (Except for being grossly overweight), comfortable, no acute distress, alert and awake Orientation/consciousness: patient oriented x3 HEENT Head: Yes normal to inspection General nose exam: No nasal polyps present and No nasal discharge present Face and sinus: Yes sinuses nontender Mouth: oropharynx normal Throat: Yes posterior oropharynx normal Eyes General: appearance normal, both eyes and all related structures Neck Neck: Yes normal visual inspection, Yes no lymphadenopathy, Yes trachea midline and Yes no JVD Thyroid: Thyroid normal Chest Chest palpation & inspection: normal inspection of the chest, normal palpation of entire chest wall and no tenderness Resp Effort & Inspection: normal respiratory effort Auscultation: clear to auscultation bilaterally Percussion: percussion normal Cardio Palpation: normal PMI Rate: regular rate Rhythm: regular rhythm Heart sounds: no gallops and no murmurs Peripheral pulses: Peripheral pulses 2+ throughout GI Palpation (GI): Soft to palpation, nontender, No hepatosplenomegaly present and no masses Auscultation: normal bowel sounds Back/Spine/Pelvis Thoracic/Lumbar Spine: thoracic and lumbar spine normal to inspection Skin General skin exam: no rashes or lesions noted Neuro General: patient oriented x3 and no focal motor deficits Cranial nerves: Yes CN's II-XII intact bilaterally Extrem General: Yes normal to inspection, Yes no clubbing, cyanosis or edema and Yes no calf tenderness Psych Speech and movement: Normal speech and movement present Results Reviewed Results Reviewed: The compliance report is from 2024 to -09/30 He has been using every night missed only 1 night in the whole month. Using for 6 hours to. 6-1/2 hours He has no issue with the CPAP machine. And there is no significant air leak residual AHI only 0.5 Assessment & Plan Assessment & Plan (1) Obstructive sleep apnea: Comment: HE HAS RATHER SEVERE OBSTRUCTIVE SLEEP APNEA WITH NOCTURNAL HYPOXEMIA. IT IS BEING TREATED SUCCESSFULLY WITH THE CPAP, AND HE IS VERY COMPLIANT. HIS SLEEP IS GOOD . HE IS DEFINITELY BENEFITTING FROM THE USE OF CPAP. Code(s): G47.33 - Obstructive sleep apnea (adult) (pediatric) Category: Medical Plan: Advised to continue using the CPAP regularly whether he is sleeping at home or at the workplace. (2) Nocturnal hypoxemia: Comment: IT IS PART OF THE SLEEP-RELATED HYPOVENTILATION, AND IS EXPECTED TO HAVE CORRECTED BY THE USE OF CPAP. Code(s): G47.34 - Idiopathic sleep related nonobstructive alveolar hypoventilation Category: Medical Plan: Clinically I think his hypoxemia is all resolved. (3) Morbid obesity: Comment: CONTINUES TO BE MORBIDLY OBESE, BUT OTHERWISE HEALTHY LOOKING. HE HAS BEEN WATCHING HIS DIET BUT HAS NOT BEEN ABLE TO WALK DURING WINTER . HE CANNOT JOIN WEIGHT MANAGEMENT PROGRAM. Code(s): E66.01 - Morbid (severe) obesity due to excess calories Category: Medical Plan: His primary care physician, has ordered Zepbound injections for him. He is just waiting to get the supply, and hopes that he would lose weight with that Coding Level of Care Code Est Pt Level 3 (27431) Diagnoses Obstructive sleep apnea G47.33 Nocturnal hypoxemia G47.34 Morbid obesity E66.01
[2025-01-22 14:39] VITALS: BP 140/70; PULSE 67; O2SAT 98; BMI 48.1
== END 2025-01-22 14:54 | disposition home or self-care (01) ==
LOC: HO.HPS 14:37
PROVIDERS: PCP Internal Medicine; Visit Provider Internal Medicine
DX: G47.33 Obstructive sleep apnea (adult) (pediatric) (principal); G47.34 Idiopathic sleep related nonobstructive alveolar hypoventilation; E66.01 Morbid (severe) obesity due to excess calories
CPT/HCPCS: 99213

== ENCOUNTER → 2025-01-22 14:36 | Outpatient (BNVA) | payer OTHER, SELFPAY | PROVIDERS: PCP Internal Medicine; Visit Provider Internal Medicine ==

== ENCOUNTER 2025-04-01 09:47 | Outpatient (REF) | payer OTHER, SELFPAY ==
[2025-04-01 11:08] LABS: Hemoglobin A1C 169.1786 umol/L; Total Hemoglobin (HGBA1C) 3916.2297 umol/L
[2025-04-01 11:13] LABS: Alanine Aminotransferase 26 U/L (0-40); Albumin Level 4.2 g/dL (3.5-5.0); Alkaline Phosphatase 69 U/L (39-117); Anion Gap 12 (12-20); Aspartate Amino Transferase 26 U/L (5-37); Blood Urea Nitrogen 17 mg/dL (9-16); Calcium 8.8 mg/dL (8.4-10.2); Carbon Dioxide 25 mmol/L (22-29); Chloride 107 mmol/L (96-108); Cholesterol 179 mg/dL (<200); Estimated Glomerular Filt Rate > 60; HDL Cholesterol 29 mg/dL (>40); Magnesium 2.1 mg/dL (1.6-2.6); Potassium 4.9 mmol/L (3.3-5.1); Sodium 139 mmol/L (135-145); Total Protein 6.7 g/dL (6.5-8.0); Triglycerides 163 mg/dL (<150)
== END 2025-04-01 09:48 | disposition home or self-care (01) ==
LOC: HO.LAB 09:47
PROVIDERS: PCP Internal Medicine; Visit Provider Internal Medicine
DX: R73.02 Impaired glucose tolerance (oral) (principal); E78.00 Pure hypercholesterolemia, unspecified
CPT/HCPCS: 36415; 80053; 80061; 83036; 83735

== ENCOUNTER 2025-04-11 10:51 | Outpatient (AMB) | payer OTHER, SELFPAY ==
[2025-04-11 10:56] VITALS: BP 134/80; PULSE 62; O2SAT 97; BMI 47.1
--- NOTE | 2025-04-11 10:56 | MHC.PC.OV ---
Vital Signs 04/11/25 10:56 Height 5 ft 8 in Weight 310 lb BMI 47.1 BP 134/80 Blood Pressure Location Lt brachial Position Sitting Pulse 62 Pulse Source Pulse Oximeter Pulse Oximetry (%) 97 Oxygen Delivery Method Room Air Intake Visit Reasons: Morbid OBesity, IGT Allergies No Known Allergies Allergy (Verified 01/22/25 14:43) Medication List - Last Reconciled 04/11/25 by Taylor Reyes MD blood pressure monitor (Blood Pressure Kit) As directed XL cuff carbamazepine 200 mg PO BID PRN clotrimazole 1% 1 appl topical BID 4 weeks [CPAP As directed] cyanocobalamin (vitamin B-12) 1,000 mcg PO DAILY docusate sodium 100 mg PO BEDTIME hydrocortisone acetate (Anucort-HC) [address] BID lisinopril 5 mg PO DAILY semaglutide (weight loss) (Wegovy) 0.25 mg (0.5 mL) subcut QWEEK sildenafil 50 mg PO DAILY PRN simvastatin 10 mg PO BEDTIME Tobacco use date assessed: 12/07/24 Dental Screening Dental Screen Date: 12/07/24 COUNT INCLUDES THE [facility] Medical History Obesity Nocturnal hypoxemia Morbid obesity Colon cancer screening Patel's palsy Hypertension Hypercholesterolemia Surgical History Meniscal injury Family History Brother Substance abuse Myocardial infarct Paternal Grandmother Cancer Father HTN (hypertension) Mother Borderline diabetes Seizures High cholesterol Dementia Social History Housing: House Are you a primary medicare specialist to a significant other at home: No Do you presently have visiting nurse or other home services: No Alcohol intake: current Alcohol intake frequency: holidays/special occasions only Comment: once Q 4 month2-3 drinks Patient Tobacco Use Status: Former Tobacco user Tobacco use type: Cigarette Years Smoked: quit 1998 e-Cigarette/Vaping Use: Never Used Second Hand Smoke Exposure: No service: No Current occupational status: employed Cognitive needs: No Hearing needs: No Vision needs: No Questionnaire Thrive Questionnaire Date Thrive assessed: 12/07/24 I am a: Patient What is your living situation today?: I have a steady place to live Within the past 12 months, did the food you bought not last and you didn't have the money to get more?: Never true Within the past 12 months, did you worry whether your food would run out before you got money to buy more?: Never true Do you have trouble paying for medicines?: No Do you have trouble getting transportation to medical appointments?: No Do you have trouble paying your heating and electricity bill?: No Do you have trouble taking care of your child, family member or friend?: No Do you have trouble with day-to-day activities such as bathing, preparing meals, shopping, managing finances, etc.?: No Are you currently unemployed and looking for a job?: No Are you interested in more education?: No Please select the resources that you would like help with: None Currently or been in a relationship where the following occur: No concerns reported THRIVE Score: 0 STEFANY-7 AMB Questionnaire STEFANY-7 Date STEFANY - 7 assessed: 12/07/24 Source: Developed by Drs. Silvino Julio, Enid Parra, Aldo Haney and colleagues, with an educational brock from [employer]. Physical exam (Primary Care) Vital Signs: Last Vital Signs Pulse 62 04/11/25 10:56 BP 134/80 04/11/25 10:56 Pulse Ox 97 04/11/25 10:56 Oxygen Delivery Method Room Air 04/11/25 10:56 BMI result Body Mass Index 47.1 Tobacco/Smoking Status: Tobacco use Status Tobacco use date assessed 12/07/24 04/11/25 10:58 Patient Tobacco Use Status Former Tobacco user 04/11/25 10:58 Tobacco use type Cigarette 04/11/25 10:58 e-Cigarette/Vaping Use Never Used 04/11/25 10:58 Thrive Assessment: Date of Thrive Assessment Date Thrive assessed 12/07/24 04/11/25 10:58 Currently or been in a relationship where the following occur: No concerns reported Const General: alert; No acute distress Eyes Conjunctivae: conjunctivae normal Resp Auscultation: clear to auscultation bilaterally Cardio Rate: regular rate Rhythm: regular rhythm GI Inspection: Yes normal to inspection Extrem General: Yes normal to inspection and No edema Coding Level of Care Code TCM High MDM <= 14 days Complex EM visit Add On G2211 Diagnoses Hypertension I10 Hypercholesterolemia E78.00 Impaired glucose tolerance R73.02 Morbid obesity E66.01 Gastroesophageal reflux disease, unspecified whether esophagitis present K21.9 Esophagitis presence: esophagitis presence not specified Obstructive sleep apnea G47.33 Assessment & Plan Assessment & Plan (1) Hypertension: Code(s): I10 - Essential (primary) hypertension Category: Medical Plan: Continue with blood pressure medication. Decrease salt intake and exercise patient is taking lisinopril 5 mg once a day (2) Hypercholesterolemia: Code(s): E78.00 - Pure hypercholesterolemia, unspecified Category: Medical Plan: Avoid fried foods, chicken skin, eggs, butter margarine, pastries and meat. Be it pork or beef they have a lot of cholesterol LDL goal of less than 130 and triglyceride of less than 150 on simvastatin 10 mg once a day (3) Impaired glucose tolerance: Code(s): R73.02 - Impaired glucose tolerance (oral) Category: Medical Plan: Decrease the amount of carbohydrate intake, pasta, bread, rice and potatoes are all sugar and that is aside from all the sweet stuff, remember that fruits are good but they are Sweet also. (4) Morbid obesity: Comment: CONTINUES TO BE MORBIDLY OBESE, BUT OTHERWISE HEALTHY LOOKING. HE HAS BEEN WATCHING HIS DIET BUT HAS NOT BEEN ABLE TO WALK DURING WINTER . HE CANNOT JOIN WEIGHT MANAGEMENT PROGRAM. Code(s): E66.01 - Morbid (severe) obesity due to excess calories Category: Medical Plan: Continue with diet and exercise. Zepbound has been prescribed. (5) GERD (gastroesophageal reflux disease): Code(s): K21.9 - Gastro-esophageal reflux disease without esophagitis Category: Medical Qualifiers: Esophagitis presence: esophagitis presence not specified Qualified Code(s): K21.9 - Gastro-esophageal reflux disease without esophagitis Plan: Avoid the foods that causes that usually spicy foods, tomato products, juices, coffee, soda and foods that your sensitive to. After eating do not lie down, allow 3-4 hours before in lie down. And keep the head of bed above 30 degrees to avoid the acid from going up. (6) Obstructive sleep apnea: Comment: HE HAS RATHER SEVERE OBSTRUCTIVE SLEEP APNEA WITH NOCTURNAL HYPOXEMIA. IT IS BEING TREATED SUCCESSFULLY WITH THE CPAP, AND HE IS VERY COMPLIANT. HIS SLEEP IS GOOD . HE IS DEFINITELY BENEFITTING FROM THE USE OF CPAP. Code(s): G47.33 - Obstructive sleep apnea (adult) (pediatric) Category: Medical Plan: Patient's follows up with Pulmonary, continue with the CPAP more than 4 hours a night and benefits from this Plan History of Present Illness The patient is a 54-year-old male presenting with a follow-up visit for chronic condition management. He has a history of systemic lupus erythematosus, hypertension, hypercholesterolemia, gastroesophageal reflux disease (GERD), obstructive sleep apnea with nocturnal hypoxemia, and impaired glucose tolerance. The patient has been compliant with CPAP therapy for obstructive sleep apnea and has followed up with pulmonary specialists. His last colonoscopy was performed in November 2021, and he is up to date with vaccinations including shingles and tetanus. Recent blood work from November 2024 showed normal blood count and electrolytes, with renal function at 1.13 mg/dL. Blood sugar was elevated at 108 mg/dL with a hemoglobin A1c of 6.1%, indicating impaired glucose tolerance. Liver function tests were normal, LDL cholesterol improved to 118 mg/dL, and triglycerides decreased to 163 mg/dL. The patient has experienced a 6-pound weight loss since January, attributed to dietary changes and lifestyle modifications. He was prescribed Zepbound for weight management, but insurance issues led to a switch to Wegovy. Health Maintenance - Colonoscopy performed in November 2021, up to date - Vaccinations up to date: shingles, tetanus - Lifestyle modifications for weight management Social History - Diet: Patient has made dietary changes focusing on lifestyle modifications rather than dieting. Review of Systems - General: Reports 6-pound weight loss since January - Respiratory: Denies issues with CPAP compliance - Cardiovascular: Denies chest pain, reports no initial swelling but later confirmed presence of swelling Physical Exam - Respiratory: Instructed to breathe in and out, and cough - Cardiovascular: No swelling noted initially, but later confirmed presence of swelling Results - Labs: Normal blood count and electrolytes, renal function at 1.13 mg/dL, elevated blood sugar at 108 mg/dL, hemoglobin A1c at 6.1%, normal liver function tests, LDL cholesterol at 118 mg/dL, triglycerides at 163 mg/dL Plan Patient was informed and verbally consented to the use of an ambient scribe for clinic note documentation during this visit. 1. Systemic Lupus Erythematosus The patient continues to manage systemic lupus erythematosus with regular follow-ups and monitoring of symptoms. 2. Hypertension The patient is currently on lisinopril 5 mg daily for hypertension management. 3. Hypercholesterolemia The patient is on simvastatin 10 mg daily with a target LDL cholesterol of less than 130 mg/dL and triglycerides less than 150 mg/dL. 4. Gastroesophageal Reflux Disease (Gerd) The patient continues management of GERD with lifestyle modifications and medication as needed. 5. Obstructive Sleep Apnea The patient is compliant with CPAP therapy, using it for more than 4 hours a night, and follows up with pulmonary specialists. 6. Impaired Glucose Tolerance The patient is advised to continue with diet and exercise to manage impaired glucose tolerance, with a hemoglobin A1c of 6.1%. 7. Weight Management The patient was initially prescribed Zepbound, but due to insurance issues, a switch to Wegovy was made for weight management. Discussion Notes During the visit, we discussed the management of the patient's chronic conditions, including systemic lupus erythematosus, hypertension, hypercholesterolemia, GERD, obstructive sleep apnea, and impaired glucose tolerance. We reviewed the patient's recent blood work and discussed the switch from Zepbound to Wegovy for weight management due to insurance coverage issues. The patient was advised to continue with lifestyle modifications and to follow up in three months. Patient Instructions - Continue using CPAP for obstructive sleep apnea for more than 4 hours a night. - Follow up with pulmonary specialists as needed. - Maintain dietary changes and lifestyle modifications for weight management. - Monitor blood sugar levels and adhere to diet and exercise recommendations. - Schedule a follow-up appointment in three months. Orders: Orders Complete Blood Count Auto Diff 3 Months R73.02 - Impaired glucose tolerance (oral) Lipid Panel 3 Months E78.00 - Pure hypercholesterolemia, unspecified, R73.02 - Impaired glucose tolerance (oral) Comprehensive Met. Panel 3 Months R73.02 - Impaired glucose tolerance (oral) Hemoglobin A1c 3 Months R73.02 - Impaired glucose tolerance (oral) Vitamin B12 and Folate 3 Months R73.02 - Impaired glucose tolerance (oral) Medications: New semaglutide (weight loss) (Wegovy) administer weeks 1 through 4 of therapy 0.25 mg (0.5 mL) subcut QWEEK 2 mL 1RF E66.01 - Morbid (severe) obesity due to excess calories Discontinued tirzepatide (weight loss) (Zepbound) for 4 weeks Discontinued Reason: Doctor's Order 2.5 mg (0.5 mL) subcut QWEEK 2 mL 1RF E66.01 - Morbid (severe) obesity due to excess calories
== END 2025-04-11 11:36 | disposition home or self-care (01) ==
LOC: HO.HMCH 10:51
PROVIDERS: PCP Internal Medicine; Visit Provider Internal Medicine
DX: I10 Essential (primary) hypertension (principal); E78.00 Pure hypercholesterolemia, unspecified; E66.01 Morbid (severe) obesity due to excess calories; Z68.42 Body mass index [BMI] 45.0-49.9, adult; R73.02 Impaired glucose tolerance (oral); K21.9 Gastro-esophageal reflux disease without esophagitis; G47.33 Obstructive sleep apnea (adult) (pediatric)

== ENCOUNTER 2025-05-21 13:52 | Outpatient (AMB) | payer OTHER, SELFPAY ==
[2025-05-21 13:56] VITALS: BP 140/82; PULSE 56; O2SAT 97; BMI 47.4
--- NOTE | 2025-05-21 13:56 | A.OFFVIS_ITS ---
Vital Signs 05/21/25 13:56 Height 5 ft 8 in Weight 311 lb 15.265 oz BMI 47.4 BP 140/82 H Blood Pressure Location Lt brachial Position Sitting Pulse 56 Pulse Source Pulse Oximeter Pulse Oximetry (%) 97 Oxygen Delivery Method Room Air Intake Visit Reasons: Obstructive sleep apnea Intake Note: pt is here for follow up of KEV and feels good. Doll Wig Hackler Required: No Sow Farm Manager: Sow Farm Manager offered & declined Allergies No Known Allergies Allergy (Verified 05/21/25 14:09) Medication List - Last Reconciled 05/21/25 by David Riedr MD blood pressure monitor (Blood Pressure Kit) As directed XL cuff carbamazepine 200 mg PO BID PRN clotrimazole 1% 1 appl topical BID 4 weeks [CPAP As directed] cyanocobalamin (vitamin B-12) 1,000 mcg PO DAILY docusate sodium 100 mg PO BEDTIME hydrocortisone acetate (Anucort-HC) 25 mg [place] BID lisinopril 5 mg PO DAILY semaglutide (weight loss) (Wegovy) 0.25 mg (0.5 mL) subcut QWEEK sildenafil 50 mg PO DAILY PRN simvastatin 10 mg PO BEDTIME Do you need a note to return to daycare/school/sports/work: No HPI HPI Obstructive sleep apnea: Details: 54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 Has obstructive sleep apnea which is treated very well with the use of CPAP. 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 His weight is unchanged. He is going to start on semaglutide ( Wagovy ) injections, [facility] Medical History Obesity Nocturnal hypoxemia Morbid obesity Colon cancer screening Patel's palsy Hypertension Hypercholesterolemia Surgical History Meniscal injury Family History Brother Substance abuse Myocardial infarct Paternal Grandmother Cancer Father HTN (hypertension) Mother Borderline diabetes Seizures High cholesterol Dementia Social History Housing: House Are you a primary home care physical therapist to a significant other at home: No Do you presently have visiting nurse or other home services: No Alcohol intake: current Alcohol intake frequency: holidays/special occasions only Comment: once Q 4 month2-3 drinks Patient Tobacco Use Status: Former Tobacco user Tobacco use type: Cigarette Years Smoked: quit 1998 e-Cigarette/Vaping Use: Never Used Second Hand Smoke Exposure: No service: No Current occupational status: employed Cognitive needs: No Hearing needs: No Vision needs: No Review of Systems Const All systems reviewed & are unremarkable except as noted in HPI and below Eyes Reports no additional complaints ENT Reports no additional complaints Card Denies chest pain, Denies irregular heart rhythm and Denies leg edema Resp Reports no additional complaints GI Reports no additional complaints Reports no additional complaints Musc Reports no additional complaints Skin/Breast Reports system reviewed and no additional complaints, except as documented Physical Exam Vital Signs: Last Vital Signs Pulse 56 05/21/25 13:56 BP 140/82 H 05/21/25 13:56 Pulse Ox 97 05/21/25 13:56 Oxygen Delivery Method Room Air 05/21/25 13:56 BMI result Body Mass Index 47.4 Const General: healthy appearing (Except for being grossly overweight), comfortable, no acute distress, alert and awake Orientation/consciousness: patient oriented x3 HEENT Head: Yes normal to inspection General nose exam: No nasal polyps present and No nasal discharge present Face and sinus: Yes sinuses nontender Mouth: oropharynx normal Throat: Yes posterior oropharynx normal Eyes General: appearance normal, both eyes and all related structures Neck Neck: Yes normal visual inspection, Yes no lymphadenopathy, Yes trachea midline and Yes no JVD Thyroid: Thyroid normal Chest Chest palpation & inspection: normal inspection of the chest, normal palpation of entire chest wall and no tenderness Resp Effort & Inspection: normal respiratory effort Auscultation: clear to auscultation bilaterally Percussion: percussion normal Cardio Palpation: normal PMI Rate: regular rate Rhythm: regular rhythm Heart sounds: no gallops and no murmurs Peripheral pulses: Peripheral pulses 2+ throughout GI Palpation (GI): Soft to palpation, nontender, No hepatosplenomegaly present and no masses Auscultation: normal bowel sounds Back/Spine/Pelvis Thoracic/Lumbar Spine: thoracic and lumbar spine normal to inspection Skin General skin exam: no rashes or lesions noted Neuro General: patient oriented x3 and no focal motor deficits Cranial nerves: Yes CN's II-XII intact bilaterally Extrem General: Yes normal to inspection, Yes no clubbing, cyanosis or edema and Yes no calf tenderness Psych Speech and movement: Normal speech and movement present Results Reviewed Results Reviewed: Compliance report not available. He is going to talk to [employer] about the compliance recording. Assessment & Plan Assessment & Plan (1) Morbid obesity: Comment: CONTINUES TO BE MORBIDLY OBESE, BUT OTHERWISE HEALTHY LOOKING. HE HAS BEEN WATCHING HIS DIET BUT HAS NOT BEEN ABLE TO WALK MUCH. HE CANNOT JOIN WEIGHT MANAGEMENT PROGRAM. Just got Wegovy 0.25 mg injections, and is going to start injecting once a week Code(s): E66.01 - Morbid (severe) obesity due to excess calories Category: Medical Plan: Talked about diet, walking daily, and start the Wegovy injections. (2) Obstructive sleep apnea: Comment: HE HAS RATHER SEVERE OBSTRUCTIVE SLEEP APNEA WITH NOCTURNAL HYPOXEMIA. IT IS BEING TREATED SUCCESSFULLY WITH THE CPAP, AND HE IS VERY COMPLIANT. HIS SLEEP IS GOOD . HE IS DEFINITELY BENEFITTING FROM THE USE OF CPAP. 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 Code(s): G47.33 - Obstructive sleep apnea (adult) (pediatric) Category: Medical Plan: CONTINUE TO USE THE CPAP REGULARLY EVERY NIGHT AT LEAST FOR 6-7 HOURS PER NIGHT Coding Level of Care Code Est Pt Level 3 (06885) Diagnoses Morbid obesity E66.01 Obstructive sleep apnea G47.33
== END 2025-05-21 14:10 | disposition home or self-care (01) ==
LOC: HO.HPS 13:53
PROVIDERS: PCP Internal Medicine; Visit Provider Internal Medicine
DX: E66.01 Morbid (severe) obesity due to excess calories (principal); G47.33 Obstructive sleep apnea (adult) (pediatric)
CPT/HCPCS: 99213

== ENCOUNTER 2025-06-13 10:17 | Outpatient (AMB) | payer OTHER, SELFPAY ==
--- NOTE | 2025-06-13 10:28 | A.OFFVIS_ITS ---
Intake Visit Reasons: 6m [place] Allergies No Known Allergies Allergy (Verified 05/21/25 14:09) HPI Comments Details: 54 years old man with right-sided trigeminal neuralgia. He is presenting with a request for a medication refill for pain management. He reports that he occasionally needs to take two pills a day. His pain levels vary, and are influenced by his sleeping position, particularly more noticeable in the morning if his head isn't well-supported on the pillow. He recently visited his primary care provider in September for routine tests. [facility] Medical History Obesity Nocturnal hypoxemia Morbid obesity Colon cancer screening Patel's palsy Hypertension Hypercholesterolemia Surgical History Meniscal injury Family History Brother Substance abuse Myocardial infarct Paternal Grandmother Cancer Father HTN (hypertension) Mother Borderline diabetes Seizures High cholesterol Dementia Social History Housing: House Are you a primary specialist wound care to a significant other at home: No Do you presently have visiting nurse or other home services: No Alcohol intake: current Alcohol intake frequency: holidays/special occasions only Comment: once Q 4 month2-3 drinks Patient Tobacco Use Status: Former Tobacco user Tobacco use type: Cigarette Years Smoked: quit 1998 e-Cigarette/Vaping Use: Never Used Second Hand Smoke Exposure: No service: No Current occupational status: employed Cognitive needs: No Hearing needs: No Vision needs: No Review of Systems Narrative - General: Reports pain requiring medication management. - Musculoskeletal: Reports positional discomfort affecting pain levels. Physical Exam Neuro Other: Mental Status: Alert and oriented to person, place, and time. Normal attention. Normal spontaneous speech, fluency, and comprehension. No obvious issues with mood and memory. Affect is appropriate. Cranial Nerves: CN II: Visual kaplan full to confrontation, visual acuity intact. CN III, IV, : Pupils equal, round, reactive to light and accommodation. Extraocular movements are normal. CN V: Facial sensation is normal. CN VII: Facial movements symmetrical. CN VIII: Hearing intact to bedside conversation is normal. CN IX, X: Palate elevates symmetrically. CN XI: Shoulder shrug and head turn symmetrical. CN XII: Tongue midline without atrophy or fasciculations. Motor: Bulk and tone normal in all extremities. No significant muscle weakness in arms and legs. No drift. Reflexes: Deep tendon reflexes 2+ and symmetric. Plantar response down-going bilaterally. Coordination: [id number] and [id number] testing normal. No dysmetria. Gait and Station: No obvious gait abnormality. No ataxia or instability. Extrapyramidal: Full facial expressions and blinking. No rigidity. Movements are appropriate with no tremor or abnormality. Speech: Normal; no dysarthria or tremor. Assessment & Plan Assessment & Plan (1) Trigeminal neuralgia of right side of face: Comment: MRI brain [facility]WO at [facility] [place] in [place] 2024: Small vessel abutting the R trigeminal nerve, minimal MVD CT brain WO at [facility] [place] in Apr [place]: [place]. Code(s): G50.0 - Trigeminal neuralgia Category: Medical Plan 54 years old man with right-handed trigeminal neuralgia control with carbamazepine 1 or 2 200 mg tablets today. Medications: Changed From carbamazepine 200 mg PO BID PRN G50.0 - Trigeminal neuralgia To carbamazepine 200 mg PO BID 180 tabs 1RF G50.0 - Trigeminal neuralgia Coding Level of Care Code Est Pt Level 4 (57003) Diagnoses Trigeminal neuralgia of right side of face G50.0
== END 2025-06-13 10:34 | disposition home or self-care (01) ==
LOC: HO.HSM 10:18
PROVIDERS: PCP Internal Medicine; Referring Provider Internal Medicine; Visit Provider Psychiatry & Neurology Neurology
DX: G50.0 Trigeminal neuralgia (principal)
CPT/HCPCS: 99214

== ENCOUNTER 2025-07-25 10:09 | Outpatient (REF) | payer OTHER, SELFPAY ==
[2025-07-25 10:29] LABS: MANUAL DIFF FLAG NO
[2025-07-25 10:46] LABS: Hematocrit 48.3 % (42.0-52.0); Hemoglobin 15.6 g/dl (14.0-18.0); Imm Gran Abs Auto 0.03 X10*3/uL (0.00-0.03); Imm Gran Pct Auto 0.4 % (0.0-0.4); Lymphocytes Absolute Auto 1.7 X10*3/uL (1.2-4.9); Mean Corpuscular HGB Conc 32.3 g/dl (31.0-36.0); Mean Corpuscular Hemoglobin 27.6 pg (27.0-33.0); Mean Corpuscular Volume 85.3 fL (80.0-98.0); NRBC Abs Auto 0.000 X10*3/uL (0.0-0.012); NRBC Pct Auto 0.0 /100WBC (0.0-0.2); Platelet Count 192 X10*3/uL (160-400); Red Blood Count 5.66 X10*6/uL (4.60-5.80); White Blood Count 6.8 X10*3/uL (4.8-10.8)
[2025-07-25 12:33] LABS: Folate 9.5 ng/mL (> or = 4.0); Vitamin B12 334 pg/mL (200-900)
[2025-07-25 13:35] LABS: Alanine Aminotransferase 25 U/L (0-40); Albumin Level 4.5 g/dL (3.5-5.0); Alkaline Phosphatase 67 U/L (39-117); Anion Gap 10 (12-20); Aspartate Amino Transferase 23 U/L (5-37); Blood Urea Nitrogen 17 mg/dL (9-16); Calcium 9.1 mg/dL (8.4-10.2); Carbon Dioxide 28 mmol/L (22-29); Chloride 108 mmol/L (96-108); Cholesterol 187 mg/dL (<200); Estimated Glomerular Filt Rate > 60; HDL Cholesterol 30 mg/dL (>40); Potassium 4.8 mmol/L (3.3-5.1); Sodium 141 mmol/L (135-145); Total Protein 7.3 g/dL (6.5-8.0); Triglycerides 144 mg/dL (<150)
== END 2025-07-25 10:10 | disposition home or self-care (01) ==
LOC: HO.LAB 10:09
PROVIDERS: PCP Internal Medicine; Visit Provider Internal Medicine
DX: E78.00 Pure hypercholesterolemia, unspecified (principal); R73.02 Impaired glucose tolerance (oral)
CPT/HCPCS: 36415; 80053; 80061; 82607; 82746; 83036; 85025

== ENCOUNTER 2025-08-06 09:42 | Outpatient (AMB) | payer OTHER, SELFPAY ==
[2025-08-06 09:59] VITALS: BP 128/82; PULSE 62; O2SAT 93; BMI 46.8
--- NOTE | 2025-08-06 09:59 | MHC.PC.OV ---
Vital Signs 08/06/25 09:59 Height 5 ft 8 in Weight 308 lb BMI 46.8 BP 128/82 Blood Pressure Location Lt brachial Position Sitting Pulse 62 Pulse Source Pulse Oximeter Pulse Oximetry (%) 93 Oxygen Delivery Method Room Air Intake Visit Reasons: morbid obesity Allergies No Known Allergies Allergy (Verified 08/06/25 10:00) Medication List - Last Reconciled 08/06/25 by Taylor Reyes MD blood pressure monitor (Blood Pressure Kit) As directed XL cuff carbamazepine 200 mg PO BID clotrimazole 1% 1 appl topical BID 4 weeks [CPAP As directed] cyanocobalamin (vitamin B-12) 1,000 mcg PO DAILY docusate sodium 100 mg PO BEDTIME hydrocortisone acetate (Anucort-HC) 25 mg SD BID lisinopril 5 mg PO DAILY semaglutide (weight loss) (Wegovy) 0.5 mg subcut QWEEK sildenafil 50 mg PO DAILY PRN simvastatin 10 mg PO BEDTIME 90 days Tobacco use date assessed: 12/07/24 Dental Screening Dental Screen Date: 12/07/24 HPI HPI Comments History of Present Illness Details History of Present Illness The patient is a 54-year-old male with a history of morbid obesity, hypertension, hypercholesterolemia, GERD, and obstructive sleep apnea, presenting for a follow-up visit. He was last seen in April 2025. For weight management, the patient was previously on tirzepatide and has since switched to Wegovy. He has been on the lowest dose of Wegovy (0.25 mg) for eight doses and reports a decrease in appetite but has not experienced significant weight loss, noting a recent 3-pound weight loss. He denies any nausea with the medication. The patient has a history of right-sided trigeminal neuralgia and is followed by neurology. An MRI in 2023 revealed a small vessel abutting the right trigeminal nerve. He was prescribed carbamazepine twice a day but reports taking it only once a day as needed when a flare-up occurs. For obstructive sleep apnea, he is followed by pulmonology and is compliant with CPAP therapy, using it for more than 6 to 7 hours a day with reported relief. Recent blood work from July 2025 showed a normal blood count with no anemia, stable kidney function with a creatinine of 1.14, and an improved hemoglobin A1c of 5.9%, down from 6.1%. His LDL cholesterol was 129 mg/dL, and his B12 and folic acid levels were normal. His last colonoscopy was in 2021, and his last prostate cancer screening was in November. Health Maintenance A request for complete blood work was provided, to be done in four months. The patient has a scheduled annual follow-up visit in December and was instructed to complete the labs beforehand. He received a recent flu shot and was advised to be cautious during the current season of high respiratory virus circulation. Social History - Substance Use: The patient reports abstaining from liquor and has significantly reduced his alcohol consumption, having only had three wine coolers recently. - Diet: He reports making efforts to eat less, particularly during the recent holiday. - He notes a decrease in hunger since starting Wegovy. - Exercise: He was advised to increase his physical activity level. Results - Labs (July 25, 2025): - Complete Blood Count: Normal, no anemia. - Comprehensive Metabolic Panel: Electrolytes are good; kidney function is stable with a creatinine of 1.14. - Hemoglobin A1c: 5.9%, improved from 6.1%. - Lipid Panel: LDL cholesterol is 129 mg/dL. - B12/Folic Acid: Normal. - Imaging (2023): - MRI Brain: Showed a small vessel abutting the right trigeminal nerve. [facility] Medical History (Updated 08/06/25 @ 10:22 by Taylor Reyes MD) Palpitations Palpitations Obesity Nocturnal hypoxemia Morbid obesity Colon cancer screening Patel's palsy Hypertension Hypercholesterolemia Surgical History Meniscal injury Family History Brother Substance abuse Myocardial infarct Paternal Grandmother Cancer Father HTN (hypertension) Mother Borderline diabetes Seizures High cholesterol Dementia Social History Housing: House Are you a primary healthcare business analyst to a significant other at home: No Do you presently have visiting nurse or other home services: No Alcohol intake: current Alcohol intake frequency: holidays/special occasions only Comment: once Q 4 month2-3 drinks Patient Tobacco Use Status: Former Tobacco user Tobacco use type: Cigarette Years Smoked: quit 1998 e-Cigarette/Vaping Use: Never Used Second Hand Smoke Exposure: No service: No Current occupational status: employed Cognitive needs: No Hearing needs: No Vision needs: No Questionnaire Thrive Questionnaire Date Thrive assessed: 12/07/24 I am a: Patient What is your living situation today?: I have a steady place to live Within the past 12 months, did the food you bought not last and you didn't have the money to get more?: Never true Within the past 12 months, did you worry whether your food would run out before you got money to buy more?: Never true Do you have trouble paying for medicines?: No Do you have trouble getting transportation to medical appointments?: No Do you have trouble paying your heating and electricity bill?: No Do you have trouble taking care of your child, family member or friend?: No Do you have trouble with day-to-day activities such as bathing, preparing meals, shopping, managing finances, etc.?: No Are you currently unemployed and looking for a job?: No Are you interested in more education?: No Currently or been in a relationship where the following occur: No concerns reported THRIVE Score: 0 STEFANY-7 AMB Questionnaire STEFANY-7 Date STEFANY - 7 assessed: 12/07/24 Source: Developed by Drs. Silvino Julio, Enid Parra, Aldo Haney and colleagues, with an educational brock from [employer] Review of Systems Narrative Review of Systems - Constitutional: Reports a 3-pound weight loss. - Denies fever with recent cold. - Endocrine: Reports decreased hunger. - Neurological: Reports intermittent right-sided facial pain consistent with trigeminal neuralgia. - Respiratory: Reports symptoms of a recent cold. Physical exam (Primary Care) Vital Signs: Last Vital Signs Pulse 62 08/06/25 09:59 BP 128/82 08/06/25 09:59 Pulse Ox 93 08/06/25 09:59 Oxygen Delivery Method Room Air 08/06/25 09:59 BMI result Body Mass Index 46.8 Tobacco/Smoking Status: Tobacco use Status Tobacco use date assessed 12/07/24 08/06/25 10:06 Patient Tobacco Use Status Former Tobacco user 08/06/25 10:06 Tobacco use type Cigarette 08/06/25 10:06 e-Cigarette/Vaping Use Never Used 08/06/25 10:06 Thrive Assessment: Date of Thrive Assessment Date Thrive assessed 12/07/24 08/06/25 10:06 Currently or been in a relationship where the following occur: No concerns reported Narrative Physical Exam - Vitals: Blood pressure is good. Const General: alert; No acute distress Eyes Conjunctivae: conjunctivae normal Resp Auscultation: clear to auscultation bilaterally Cardio Rate: regular rate Rhythm: regular rhythm GI Inspection: Yes normal to inspection Extrem General: Yes normal to inspection and No edema Office Procedures Flu Questionnaire Does the patient have a severe egg allergy?: No Does the patient have severe life threatening allergies?: No Does the patient have a fever or illness today?: No Has the patient ever had Guillain-[place] Syndrome?: No Has the patient ever had any past reaction to a flu shot?: No Immunizations Fluarix [id number] (PF) 45 mcg (15 mcg x 3)/0.5 mL IM syringe Performing Provider: Taylor Reyes MD [facility] Administered by: Mandy Gimenez CMA on 08/06/25 10:09 Dose Route Admin Location Dispensed Lot Number Expiration Date NDC [place] [employer] 0.5 mL IM Left Deltoid 0.5 mL [id number] 02/04/26 92863-059-13 [email or web address] VIS Given Date VIS Provided VIS Publication Date 08/06/25 Single Vaccine 24 Eligibility Eligibility Date Funding Source Not [facility] Eligible 08/06/25 Private Coding Level of Care Code Est Pt Level 4 (00986) Add On Problem Visit Only Diagnoses Hypertension I10 Hypercholesterolemia E78.00 Impaired glucose tolerance R73.02 Morbid obesity E66.01 Gastroesophageal reflux disease, unspecified whether esophagitis present K21.9 Esophagitis presence: esophagitis presence not specified Trigeminal neuralgia of right side of face G50.0 Obstructive sleep apnea G47.33 Assessment & Plan Assessment & Plan (1) Hypertension: Code(s): I10 - Essential (primary) hypertension Category: Medical Plan: Continue with blood pressure medication. Decrease salt intake and exercise patient on lisinopril 5 mg once a day (2) Hypercholesterolemia: Code(s): E78.00 - Pure hypercholesterolemia, unspecified Category: Medical Plan: Avoid fried foods, chicken skin, eggs, butter margarine, pastries and meat. Be it pork or beef they have a lot of cholesterol LDL goal of less than 130 and triglyceride of less than 150 on simvastatin 10 mg once a day (3) Impaired glucose tolerance: Code(s): R73.02 - Impaired glucose tolerance (oral) Category: Medical Plan: Decrease the amount of carbohydrate intake, pasta, bread, rice and potatoes are all sugar and that is aside from all the sweet stuff, remember that fruits are good but they are Sweet also. (4) Morbid obesity: Comment: CONTINUES TO BE MORBIDLY OBESE, BUT OTHERWISE HEALTHY LOOKING. HE HAS BEEN WATCHING HIS DIET BUT HAS NOT BEEN ABLE TO WALK MUCH. HE CANNOT JOIN WEIGHT MANAGEMENT PROGRAM. Just got Wegovy 0.25 mg injections, and is going to start injecting once a week Code(s): E66.01 - Morbid (severe) obesity due to excess calories Category: Medical Plan: Diet and exercise patient has been prescribed wegovy (5) GERD (gastroesophageal reflux disease): Code(s): K21.9 - Gastro-esophageal reflux disease without esophagitis Category: Medical Qualifiers: Esophagitis presence: esophagitis presence not specified Qualified Code(s): K21.9 - Gastro-esophageal reflux disease without esophagitis Plan: Avoid the foods that causes that usually spicy foods, tomato products, juices, coffee, soda and foods that your sensitive to. After eating do not lie down, allow 3-4 hours before in lie down. And keep the head of bed above 30 degrees to avoid the acid from going up. (6) Trigeminal neuralgia of right side of face: Comment: MRI brain [place] [facility] [place]: Small vessel abutting the R trigeminal nerve, minimal MVD CT brain WO [place] [facility] [place]. Code(s): G50.0 - Trigeminal neuralgia Category: Medical Plan: Patient follows up with Neurology and has been placed on carbamazepine, increase dose (7) Obstructive sleep apnea: Comment: HE HAS RATHER SEVERE OBSTRUCTIVE SLEEP APNEA WITH NOCTURNAL HYPOXEMIA. IT IS BEING TREATED SUCCESSFULLY WITH THE CPAP, AND HE IS VERY COMPLIANT. HIS SLEEP IS GOOD . HE IS DEFINITELY BENEFITTING FROM THE USE OF CPAP. 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 Code(s): G47.33 - Obstructive sleep apnea (adult) (pediatric) Category: Medical Plan: Follows up with Pulmonary continue to use the CPAP more than 4 hours a night and benefits from this Plan Plan Patient was informed and verbally consented to the use of an ambient scribe for clinic note documentation during this visit. 1. Morbid Obesity And Prediabetes The patient's hemoglobin A1c has improved to 5.9% from 6.1%. He is currently on Wegovy 0.25 mg, which has reduced his appetite but resulted in minimal weight loss. The plan is to increase the Wegovy dose to 0.5 mg to improve its efficacy. He was instructed to continue with diet and increase physical activity, and to send a message if his weight does not decrease before his next scheduled appointment in December. Follow-up labs will be performed in four months. 2. Hypercholesterolemia The patient's LDL cholesterol is 129 mg/dL, which is at the goal of less than 130 mg/dL. He will continue taking simvastatin 10 mg once daily. A prescription refill for simvastatin was sent. His cholesterol will be rechecked with labs in four months. 3. Hypertension The patient's blood pressure is well-controlled. He will continue lisinopril 5 mg once a day and a prescription refill was sent. 4. Right-Sided Trigeminal Neuralgia The patient continues to be followed by neurology for this condition. He is taking carbamazepine as needed for pain, despite it being prescribed for twice-daily use. No changes were made to his management at this visit. 5. Obstructive Sleep Apnea The patient continues follow-up with pulmonology and reports benefiting from using his CPAP machine for more than 4 hours a night. He will continue with his current CPAP therapy. Discussion Notes I reviewed the patient's recent lab work from July 2025 with him, highlighting the stability of his kidney function, the improvement in his hemoglobin A1c to 5.9%, and his LDL cholesterol being at goal. We discussed his progress on Wegovy for weight loss. Given the minimal weight loss on the 0.25 mg starting dose, I recommended increasing the dose to 0.5 mg to achieve a better therapeutic effect. I sent in a new prescription for the higher dose. I confirmed that his blood pressure is well-controlled and refilled his prescriptions for lisinopril and simvastatin. We discussed his non-adherence to the prescribed carbamazepine regimen for trigeminal neuralgia, which he takes as needed rather than twice daily. I provided him with a lab request form for a 4-month follow-up and encouraged him to increase his physical activity. I advised him to contact me before his scheduled December appointment if he is not seeing progress with weight loss on the new dose. Patient Instructions - I have increased your Wegovy dose to 0.5 mg to help with weight loss. - You can finish your current 0.25 mg pens before starting the new 0.5 mg prescription, or you can take two 0.25 mg shots to equal the new dose. - Continue to take your simvastatin for cholesterol and lisinopril for blood pressure as prescribed. - I have sent refills for these medications to your pharmacy. - For your recent cold, you can use [id number] nasal sprays like Flonase if your symptoms get worse. - Please get blood work done in four months using the request form I provided. - This should be completed before your next annual appointment in December. - Do not wait until your December appointment if you are not losing weight. - Please send me a message through the portal so we can make adjustments. - Try to increase your physical activity. Orders: Orders Lipid Panel 4 Months E78.00 - Pure hypercholesterolemia, unspecified Thyroid Stimulating Hormone 4 Months E78.00 - Pure hypercholesterolemia, unspecified Hemoglobin A1c 4 Months E78.00 - Pure hypercholesterolemia, unspecified UA CC w/rflx Micro + Cult 4 Months E78.00 - Pure hypercholesterolemia, unspecified, R30.0 - Dysuria Influenza [id number] Immunization Today Z23 - Encounter for immunization Complete Blood Count Auto Diff 4 Months E78.00 - Pure hypercholesterolemia, unspecified Comprehensive Met. Panel 4 Months E78.00 - Pure hypercholesterolemia, unspecified Free T4 (Free Thyroxine) 4 Months E78.00 - Pure hypercholesterolemia, unspecified Vitamin B12 and Folate 4 Months E78.00 - Pure hypercholesterolemia, unspecified Prostate Specific Antigen Scr 4 Months E78.00 - Pure hypercholesterolemia, unspecified Medications: Changed From semaglutide (weight loss) (Wegovy) administer weeks 1 through 4 of therapy 0.25 mg (0.5 mL) subcut QWEEK 2 mL 1RF E66.01 - Morbid (severe) obesity due to excess calories To semaglutide (weight loss) (Wegovy) administer weeks 1 through 4 of therapy 0.5 mg subcut QWEEK 2 mL 1RF E66.01 - Morbid (severe) obesity due to excess calories Refilled simvastatin 10 mg PO BEDTIME 90 tabs 1RF 90 days E78.00 - Pure hypercholesterolemia, unspecified lisinopril 5 mg PO DAILY 90 tabs 2RF I10 - Essential (primary) hypertension
== END 2025-08-06 10:33 | disposition home or self-care (01) ==
LOC: HO.HMCH 09:43
PROVIDERS: PCP Internal Medicine; Visit Provider Internal Medicine
DX: I10 Essential (primary) hypertension (principal); E78.00 Pure hypercholesterolemia, unspecified; R73.02 Impaired glucose tolerance (oral); E66.01 Morbid (severe) obesity due to excess calories; K21.9 Gastro-esophageal reflux disease without esophagitis; G50.0 Trigeminal neuralgia; G47.33 Obstructive sleep apnea (adult) (pediatric); Z23 Encounter for immunization

== ENCOUNTER → 2025-08-06 09:42 | Outpatient (BNVA) | payer OTHER, SELFPAY | PROVIDERS: PCP Internal Medicine; Visit Provider Internal Medicine | CPT/HCPCS: 90471; 90656 ==